=== PATIENT | female | born 1930 | race Caucasian/White ===

== ENCOUNTER 2018-12-04 12:27 | Inpatient (IN) | payer MEDICARE ==
[2018-12-04] MEDS ORDERED: Sodium Chloride 0.9% 1,000 ML IV SCH ×2 (12:30→14:30)
--- NOTE | 2018-12-04 13:08 | EDM.PDOC ---
ED HPI GENERAL MEDICAL PROBLEM - General Chief Complaint: Syncope Stated Complaint: VIA [facility] AM Time Seen by Provider: 12/04/18 12:58 Source of Information: Reports: Patient History Limitations: Reports: No Limitations - History of Present Illness INITIAL COMMENTS - FREE TEXT/NARRATIVE: pt was found lying on the floor naked. She stated that she tripped over the cat 2-3 hours ago and she was not able to stand up. She lives alone and is able to care for her self with the help of the family. Onset: Today, Sudden Duration: Hour(s): Location: Reports: Chest, Lower Extremity, Left Associated Symptoms: Reports: Syncope - Related Data Allergies Allergy/AdvReac Type Severity Reaction Status Date / Time No Known Allergies Allergy Verified 08/12/15 22:12 Home Meds: Home Meds Multivitamin [Daily Multiple Vitamin] 1 tab PO DAILY 08/12/15 [History] Lisinopril/Hydrochlorothiazide [Lisinopril-Hctz 20-25 mg Tab] 20.25 mg PO DAILY 08/13/15 [History] Aspirin [Halfprin] 1 tab PO DAILY 12/04/18 [History] Past Medical History Cardiovascular History: Reports: CAD, Hypertension, Pacemaker, Syncope, Other ( See Below) Other Cardiovascular History: heart valve problems, dyslipidemia Gastrointestinal History: Reports: GERD - Past Surgical History HEENT Surgical History: Reports: Other (See Below) Social & Family History - Family History Family Medical History: Noncontributory ED ROS GENERAL - Review of Systems Review Of Systems: See Below Constitutional: Reports: Weakness, Other (pt fell and she was not able to get up. ) HEENT: Reports: No Symptoms Respiratory: Reports: No Symptoms Cardiovascular: Reports: No Symptoms Endocrine: Reports: No Symptoms GI/Abdominal: Reports: No Symptoms : Reports: No Symptoms Musculoskeletal: Reports: Other (pain in the left hip and pelvis--mild. She has some pain in her left rib area. ) Skin: Reports: No Symptoms Neurological: Reports: Dizziness, Other (pt t fell and she was not able to get up. ) - Physical Exam Exam: See Below Text/Narrative:: pt arrived with a history of being found on the floor by her son. No one knows how long she was on the floor. She states she did not pass out. She tripped over the cat and then she could not get up. Exam Limited By: No Limitations General Appearance: Alert, Anxious, Moderate Distress, Other (pt is complaining of pain in the left anterior chest and in the left hip. pupils are equal and reactive. ) Ears: Normal TMs Nose: Normal Inspection Throat/Mouth: Normal Inspection Head Exam: Atraumatic Neck: Normal Inspection Respiratory/Chest: No Respiratory Distress Cardiovascular: Regular Rate, Rhythm GI/Abdominal: Soft, Non-Tender (Female) Exam: Deferred Rectal (Female) Exam: Deferred Neuro Exam (Abbreviated): Alert, Oriented, Normal Cognition Back Exam: Normal Inspection Extremities: Normal Inspection Psychiatric: Normal Affect, Anxious Course - Vital Signs Last Recorded V/S: Last Vital Signs Temp 35.7 C 12/06/18 07:00 Pulse 94 12/06/18 07:00 Resp 18 12/06/18 07:00 BP 118/84 12/06/18 07:00 Pulse Ox 98 12/06/18 07:00 - Orders/Labs/Meds Orders: Medication Orders Acetaminophen (Tylenol) 650 mg PO Q4H PRN PRN Reason: Pain/Fever Last Admin: 12/05/18 02:50 Dose: 650 mg Aspirin (Halfprin) 81 mg PO DAILY [facility] Last Admin: 12/05/18 11:49 Dose: 81 mg Hydrochlorothiazide (Hydrochlorothiazide) 25 mg PO DAILY [facility] Last Admin: 12/05/18 11:47 Dose: Sodium Chloride (Normal Saline) 1,000 mls @ 125 mls/hr IV ASDIRECTED [facility] Last Admin: 12/06/18 03:43 Dose: 125 mls/hr Infusion: 12/06/18 03:43 Dose: 125 mls/hr Admin: 12/05/18 19:46 Dose: 125 mls/hr Infusion: 12/05/18 19:46 Dose: 125 mls/hr Admin: 12/05/18 11:52 Dose: 125 mls/hr Infusion: 12/05/18 11:52 Dose: 125 mls/hr Admin: 12/05/18 04:16 Dose: 125 mls/hr Admin: 12/04/18 19:46 Dose: 125 mls/hr Ceftriaxone Sodium 1 gm/ (Sodium Chloride) 50 mls @ 100 mls/hr IV Q24H [facility] Last Admin: 12/05/18 17:30 Dose: 100 mls/hr Admin: 12/04/18 19:42 Dose: 100 mls/hr Lisinopril (Prinivil) 20 mg PO DAILY [facility] Last Admin: 12/05/18 11:48 Dose: Magnesium Hydroxide (Milk Of Magnesia) 30 ml PO Q12H PRN PRN Reason: Constipation Melatonin (Melatonin) 9 mg PO BEDTIME [facility] Last Admin: 12/05/18 21:32 Dose: 9 mg Admin: 12/04/18 21:03 Dose: 9 mg Ondansetron HCl (Zofran Odt) 4 mg PO Q6H PRN PRN Reason: Nausea able to take PO Ondansetron HCl (Zofran) 4 mg IV Q6H PRN PRN Reason: Nausea/Vomiting Polymyxin/Trimethoprim Sulfate (Polytrim Ophth Soln) 0 ml EYERT QID [facility] Last Admin: 12/06/18 05:00 Dose: 1 drop Admin: 12/05/18 21:32 Dose: 1 drop Admin: 12/05/18 17:30 Dose: 1 drop Admin: 12/05/18 11:46 Dose: 1 drop Admin: 12/05/18 06:24 Dose: Admin: 12/04/18 22:15 Dose: Admin: 12/04/18 17:53 Dose: Senna/Docusate Sodium (Senna Plus) 1 tab PO BID PRN PRN Reason: Constipation Tramadol HCl (Ultram) 50 mg PO Q6H PRN PRN Reason: Pain (moderate 4-6) Last Admin: 12/05/18 02:49 Dose: 50 mg Admin: 12/04/18 21:03 Dose: 50 mg Labs: Laboratory Tests 12/04/18 12/04/18 12/04/18 Range/Units 12:35 12:35 12:35 WBC 17.9 H (4.5-11.0) K/uL RBC 4.97 (3.30-5.50) M/uL Hgb 16.5 H D (12.0-15.0) g/dL Hct 48.1 H (36.0-48.0) % MCV 97 (80-98) fL MCH 33 H (27-31) pg MCHC 34 (32-36) % Plt Count 258 (150-400) K/uL Neut % (Auto) 91 H (36-66) % Lymph % (Auto) 5 L (24-44) % Glenn % (Auto) 4 (2-6) % Eos % (Auto) 0 L (2-4) % Baso % (Auto) 0 (0-1) % Sodium 129 L (140-148) mmol/L Potassium 4.0 (3.6-5.2) mmol/L Chloride 93 L (100-108) mmol/L Carbon Dioxide 23 (21-32) mmol/L Anion Gap 17.0 H (5.0-14.0) mmol/L BUN 8 (7-18) mg/dL Creatinine 0.8 (0.6-1.0) mg/dL Est Cr Clr Drug Dosing 42.90 mL/min Estimated GFR (MDRD) > 60 (>60) Glucose 117 H (74-106) mg/dL Calcium 9.4 D (8.5-10.1) mg/dL Total Bilirubin 1.3 H D (0.2-1.0) mg/dL AST 36 D (15-37) U/L ALT 22 (12-78) U/L Alkaline Phosphatase 79 (46-116) U/L Creatine Kinase 505 H (26-192) U/L Troponin I < 0.017 (0.000-0.056) ng/mL Total Protein 7.0 (6.4-8.2) g/dL Albumin 3.5 (3.4-5.0) g/dL Globulin 3.5 (2.3-3.5) g/dL Albumin/Globulin Ratio 1.0 L (1.2-2.2) Meds: Medications Generic Name Dose Route Start Last Admin Trade Name Otoniel PRN Reason Stop Dose Admin Acetaminophen 650 mg 12/04/18 15:19 12/05/18 02:50 Tylenol PO 650 mg Q4H PRN Administration Pain/Fever Aspirin 81 mg 12/05/18 09:00 12/05/18 11:49 Halfprin PO 81 mg DAILY [facility]IM[facility] Administration Hydrochlorothiazide 25 mg 12/05/18 09:00 12/05/18 11:47 Hydrochlorothiazide PO Not Given DAILY [facility] Sodium Chloride 1,000 mls @ 125 mls/hr 12/04/18 16:45 12/06/18 03:43 Normal Saline IV 125 mls/hr ASDIRECTED JIM[facility] Administration Ceftriaxone Sodium 1 gm/ 50 mls @ 100 mls/hr 12/04/18 18:00 12/05/18 17:30 Sodium Chloride IV 100 mls/hr Q24H [facility]IM[facility] Administration Lisinopril 20 mg 12/05/18 09:00 12/05/18 11:48 Prinivil PO Not Given DAILY JIM[facility] Magnesium Hydroxide 30 ml 12/04/18 16:45 Milk Of Magnesia PO Q12H PRN Constipation Melatonin 9 mg 12/04/18 21:00 12/05/18 21:32 Melatonin PO 9 mg BEDTIME [facility] Administration Ondansetron HCl 4 mg 12/04/18 16:45 Zofran Odt PO Q6H PRN Nausea able to take PO Ondansetron HCl 4 mg 12/04/18 16:45 Zofran IV Q6H PRN Nausea/Vomiting Polymyxin/Trimethoprim Sulfate 0 ml 12/04/18 16:45 12/06/18 05:00 Polytrim Ophth Soln EYERT 1 drop QID [facility] Administration Senna/Docusate Sodium 1 tab 12/04/18 16:45 Senna Plus PO BID PRN Constipation Tramadol HCl 50 mg 12/04/18 16:45 12/05/18 02:49 Ultram PO 50 mg Q6H PRN Administration Pain (moderate 4-6) Discontinued Medications Generic Name Dose Route Start Last Admin Trade Name Freq PRN Reason Stop Dose Admin Ceftriaxone Sodium Confirm 12/04/18 19:37 12/04/18 19:55 Rocephin Administered 12/04/18 19:38 Not Given Dose 1 gm .ROUTE .STK-MED ONE Sodium Chloride 1,000 mls @ 999 mls/hr 12/04/18 12:30 12/04/18 12:49 Normal Saline IV 999 mls/hr ASDIRECTED [facility]IM[facility] Administration Sodium Chloride 1,000 mls @ 250 mls/hr 12/04/18 14:30 12/04/18 14:34 Normal Saline IV 250 mls/hr ASDIRECTED [facility] Administration - Re-Assessments/Exams Free Text/Narrative Re-Assessment/Exam: 12/06/18 07:27 pt had mild elevation in her cpk. Her na is low and her wbc is elevated. A cat scan of the head was normal. 12/06/18 07:28 Departure - Departure Time of Disposition: 07:00 Disposition: Admitted As Inpatient 65 Condition: Fair Clinical Impression: Elevated CPK, Contusion of left hip, Contusion of left chest wall - Discharge Information
[2018-12-04] MEDS ORDERED: Acetaminophen 325 MG Tab PO PRN (15:19)
--- NOTE | 2018-12-04 15:32 | PCM.HP ---
H&P History of Present Illness - General Date of Service: 12/04/18 Admit Problem/Dx: Admission Diagnosis/Problem Admission Diagnosis/Problem Rhabdomyolysis Source of Information: Patient, Family, Provider History Limitations: Reports: No Limitations - History of Present Illness Initial Comments - Free Text/Narative: CC: my hip hurts HPI: October presents to the emergency room today with weakness, left side and left hip pain. History is somewhat limited and her history is not consistent because of some apparent memory difficulties. The patient reports that she tripped over the This morning while getting out of the shower and fell landing on her left side. She says she was on the floor for half an hour but family thinks it may have been several hours. The patient is currently complaining of moderate achy pain in the left lateral portion of the ribs and her left hip. Moving makes the pain worse. Laying still makes the pain better. She hasn't taken anything to help the pain. She reports that she has felt well and there has been nothing out of the ordinary in recent days. She doesn't think she's had any fevers. She has not noticed a change in her bowel or bladder habits. She does not feel short of breath and has not been coughing. She does admit that she has not been eating well and has not been drinking very much water. Workup in the emergency room included laboratory testing, urinalysis and a variety of imaging. Laboratory studies revealed leukocytosis and elevated CK consistent with rhabdomyolysis.. Urinalysis suggestive of infection. Imaging studies did not reveal evidence for rib fracture, hip fracture, intracranial abnormality or lumbar spine difficulty. She is weak and requires the assisted 2 people to get up. She'll be admitted for management of rhabdomyolysis and a urinary tract infection complicated by generalized weakness. - Related Data Allergies/Adverse Reactions: Allergies Allergy/AdvReac Type Severity Reaction Status Date / Time No Known Allergies Allergy Verified 08/12/15 22:12 Home Medications: Home Meds Multivitamin [Daily Multiple Vitamin] 1 tab PO DAILY 08/12/15 [History] Lisinopril/Hydrochlorothiazide [Lisinopril-Hctz 20-25 mg Tab] 20.25 mg PO DAILY 08/13/15 [History] Aspirin [Halfprin] 1 tab PO DAILY 12/04/18 [History] Past Medical History HEENT History: Reports: Hard of Hearing Cardiovascular History: Reports: CAD, Hypertension, Pacemaker, Syncope, Other ( See Below) Other Cardiovascular History: heart valve problems, dyslipidemia Gastrointestinal History: Reports: GERD Genitourinary History: Reports: Urinary Incontinence [employer] History: Reports: Immunologic History: Reports: Other (See Below) Other Immunologic History: RA - Past Surgical History HEENT Surgical History: Reports: Other (See Below) Social & Family History - Family History Family Medical History: Noncontributory - Tobacco Use Smoking Status *Q: Never Smoker - Caffeine Use Caffeine Use: Reports: Coffee - Alcohol Use Days Per Week of Alcohol Use: 7 Number of Drinks Per Day: 3 Total Drinks Per Week: 21 - Recreational Drug Use Recreational Drug Use: No H&P Review of Systems - Review of Systems: Review Of Systems: See Below Free Text/Narrative: A complete 12 point review of systems was obtained. Pertinent positives and negatives are noted in the history of present illness. All other systems were reviewed and were negative except as noted. Exam - Exam Exam: See Below - Vital Signs Vital Signs: Last Vital Signs Temp 35.7 C 12/04/18 13:01 Pulse 95 12/04/18 13:01 Resp 20 12/04/18 13:01 BP 133/67 12/04/18 13:01 Pulse Ox 95 12/04/18 13:01 Weight: 62.596 kg - Exam Quality Assessment: No: Supplemental Oxygen General: Alert, Cooperative. No: Mild Distress HEENT: No: Conjunctiva Clear (right conjunciva injected with purulent material in the medial eye ), Mucosa Moist & [place] (dry), Scleral Icterus Neck: Supple, Trachea Midline. No: Lymphadenopathy Lungs: Clear to Auscultation, Normal Respiratory Effort Cardiovascular: Regular Rate, Regular Rhythm, Systolic Murmur (VENECIA throughout, best RUSB) GI/Abdominal Exam: Normal Bowel Sounds, Soft, No Distention, No Mass, Tender ( mild LUQ) Back Exam: Normal Inspection, Decreased Range of Motion Extremities: No Pedal Edema. No: Increased Warmth Peripheral Pulses: 2+: Dorsalis Pedis (L), Dorsalis Pedis (R) Skin: Warm, Dry Neuro Extensive - Mental Status: Alert, Nl Response to Commands Neuro Extensive - Motor, Sensory, Reflexes: No: Dysarthria, Abnormal Motor, Tremor Psychiatric: Alert, Normal Affect - Patient Data Lab Results Last 24 hrs: Laboratory Results - last 24 hr 08/04/19 08/04/19 08/04/19 Range/Units 12:35 12:35 12:35 WBC 17.9 H (4.5-11.0) K/uL RBC 4.97 (3.30-5.50) M/uL Hgb 16.5 H D (12.0-15.0) g/dL Hct 48.1 H (36.0-48.0) % MCV 97 (80-98) fL MCH 33 H (27-31) pg MCHC 34 (32-36) % Plt Count 258 (150-400) K/uL Neut % (Auto) 91 H (36-66) % Lymph % (Auto) 5 L (24-44) % [place] % (Auto) 4 (2-6) % Eos % (Auto) 0 L (2-4) % Baso % (Auto) 0 (0-1) % Sodium 129 L (140-148) mmol/L Potassium 4.0 (3.6-5.2) mmol/L Chloride 93 L (100-108) mmol/L Carbon Dioxide 23 (21-32) mmol/L Anion Gap 17.0 H (5.0-14.0) mmol/L BUN 8 (7-18) mg/dL Creatinine 0.8 (0.6-1.0) mg/dL Est Cr Clr Drug Dosing 42.90 mL/min Estimated GFR (MDRD) > 60 (>60) Glucose 117 H (74-106) mg/dL Calcium 9.4 D (8.5-10.1) mg/dL Total Bilirubin 1.3 H D (0.2-1.0) mg/dL AST 36 D (15-37) U/L ALT 22 (12-78) U/L Alkaline Phosphatase 79 (46-116) U/L Creatine Kinase 505 H (26-192) U/L Troponin I < 0.017 (0.000-0.056) ng/mL Total Protein 7.0 (6.4-8.2) g/dL Albumin 3.5 (3.4-5.0) g/dL Globulin 3.5 (2.3-3.5) g/dL Albumin/Globulin Ratio 1.0 L (1.2-2.2) Result Diagrams: 12/04/18 12:35 12/04/18 12:35 Imaging Impressions Last 24 hrs: Hip XR - images personally reviewed - no evidence for fracture or dislocation. She does have a fair amount of arthritis. CXR - lungs are clear with no mass, infiltrate or effusion. Head CT - mild volume loss with chronic small vessel ischemic disease but no hemorrhage or mass Lumbar spine CT - no evidence for fracture or dislocation. Significant degenerative changes throughout the lumbar spine. Partially visualized cystic lesion in the right adnexa *Q Meaningful Use (ADM) - VTE Risk Assess *Q Each Risk Factor Represents 1 Point: None Total Score 1 Point Risk Factors: 0 Each Risk Factor Represents 2 Points: None Total Score 2 Point Risk Factors: 0 Each Risk Factor Represents 3 Points: Age 75 Years or Greater Total Score 3 Point Risk Factors: 3 Each Risk Factor Represents 5 Points: None Total Score 5 Point Risk Factors: 0 Venous Thromboembolism Risk Factor Score *Q: 3 - Problem List (1) Acute cystitis without hematuria SNOMED Code(s): 22758805 ICD Code: N30.00 - ACUTE CYSTITIS WITHOUT HEMATURIA Status: Acute Current Visit: Yes (2) Dehydration SNOMED Code(s): 68101952 ICD Code: E86.0 - DEHYDRATION Status: Acute Current Visit: Yes (3) Traumatic rhabdomyolysis SNOMED Code(s): 806115048 ICD Code: T79.6XXA - TRAUMATIC ISCHEMIA OF MUSCLE, INITIAL ENCOUNTER Status : Acute Current Visit: Yes Qualifiers: Encounter type: initial encounter Qualified Code(s): T79.6XXA - Traumatic ischemia of muscle, initial encounter (4) Fall as cause of accidental injury at home as place of occurrence SNOMED Code(s): 19251674 ICD Code: W19.XXXA - UNSPECIFIED FALL, INITIAL ENCOUNTER; Y92.009 - UNSP PLACE IN UNSP NON-INSTITUT (PRIVATE) RESIDENCE PLACE Status: Acute Current Visit: Yes Qualifiers: Encounter type: initial encounter Qualified Code(s): W19.XXXA - Unspecified fall, initial encounter; Y92.009 - Unspecified place in unspecified non-institutional (private) residence as the place of occurrence of the external cause Problem List Initiated/Reviewed/Updated: Yes Orders Last 24hrs: Active Orders 24 hr Category Date Time Status Patient Status Manage Transfer [TRANSFER] Routine ADT 12/04/18 15:21 Ordered Chest 1V Frontal [CR] Stat Exams 12/04/18 12:55 Taken Head wo Cont [CT] Stat Exams 12/04/18 14:38 Ordered Hip Min 2V or 3V w Pelvis Lt [CR] Stat Exams 12/04/18 12:56 Taken Lumbar Spine Min 4V [CR] Stat Exams 12/04/18 14:39 Stop Req Lumbar Spine wo Cont [CT] Stat Exams 12/04/18 15:16 Ordered UA W/MICROSCOPIC [URIN] Urgent Lab 12/04/18 12:29 Ordered Acetaminophen [Tylenol] Med 12/04/18 15:19 Active 650 mg PO Q4H PRN Sodium Chloride 0.9% [Normal Saline] 1,000 ml Med 12/04/18 12:30 Active IV ASDIRECTED Sodium Chloride 0.9% [Normal Saline] 1,000 ml Med 12/04/18 14:30 Active IV ASDIRECTED Resuscitation Status Routine Resus Stat 12/04/18 15:22 Ordered Medication Orders Acetaminophen (Tylenol) 650 mg PO Q4H PRN PRN Reason: Pain/Fever Sodium Chloride (Normal Saline) 1,000 mls @ 999 mls/hr IV ASDIRECTED [facility] Last Admin: 12/04/18 12:49 Dose: 999 mls/hr Sodium Chloride (Normal Saline) 1,000 mls @ 250 mls/hr IV ASDIRECTED [facility] Last Admin: 12/04/18 14:34 Dose: 250 mls/hr Assessment/Plan Comment:: ASSESSMENT AND PLAN - Rhabdomyolysis, traumatic - patient had a fall and spent an unknown quantity of time on the floor. CK level elevated at more than 500 and I expect that this will rise before it starts to go down. Pain is mostly localized on the left side. No evidence for muscle necrosis at this time. She is moderately dehydrated. -IV fluids -Pain control -Recheck CK level in the morning Acute cystitis without hematuria - this would explain her weakness and memory impairment compared to baseline. She is not febrile and did not have symptoms. No evidence for sepsis but she does have leukocytosis. -Ceftriaxone -IV fluids -Culture the urine Essential hypertension - blood pressure control acceptable at this time. -Continue home medication Right eye bacterial conjunctivitis - conjunctiva appear inflamed and there is a mild amount of purulent drainage in the medial portion of the eye. -Polytrim eyedrops Cystic lesion of the right adnexa - No symptoms. -Pelvic ultrasound in the morning Maintenance issues - - DVT prophylaxis - mechanical - GI prophylaxis - PPI - Nutrition - regular - Mckeon catheter - not indicated CODE STATUS - DNR/DNI Admission justification - This patient will be admitted for inpatient services and is medically appropriate meeting medical necessity for inpatient admission as outlined in my documentation. I reasonably expect the patient will require inpatient services that span a period time over 2 midnights. I reasonably expect this patient to be discharged or transferred within 96 hours after admission to the [facility]. Disposition - I would anticipate discharge home after the hospital stay Primary care physician - Desean Goodrich M.D.
--- NOTE | 2018-12-04 15:35 | CRLCR ---
Indication: Pain in left side of chest. Technique: AP view of the chest was obtained. Comparison: None Findings: A left-sided pacemaker is identified. The heart is normal in size. Left basilar atelectasis identified. No pleural effusion or pneumothorax is identified. Impression: Left basilar atelectasis. Dictated by Shaneka Chapa MD @ Dec 04 2018 3:33PM Signed by Dr. Shaneka Chapa @ Dec 04 2018 3:33PM
--- NOTE | 2018-12-04 15:48 | CRLCR ---
Indication: Pain in left hip. Technique: AP view the pelvis and two views of the left hip were obtained. Comparison: None Findings: Degenerative changes of the lower lumbar spine and both hips are identified. Both femoral heads are seated within the acetabula. No acute fracture or subluxation is identified. Impression: Degenerative change. Dictated by Shaneka Chapa MD @ Dec 04 2018 3:46PM Signed by Dr. Shaneka Chapa @ Dec 04 2018 3:46PM
--- NOTE | 2018-12-04 16:19 | CRLCT ---
INDICATION: Falling with questionable LOC TECHNIQUE: Head CT without contrast. COMPARISON: None FINDINGS: CSF spaces: Within normal limits for age. Brain parenchyma: There are nonspecific low attenuation white matter changes consistent with chronic microvascular disease. No sign of mass, hemorrhage, or midline shift. Skull base and calvarium: The visualized paranasal sinuses and mastoid air cells demonstrate no acute or significant findings. The visualized orbits are grossly unremarkable. No skull fractures. There is intracranial atherosclerosis. IMPRESSION: 1. No acute findings. 2. Nonspecific white matter disease, typical of chronic microvascular disease. Please note that all CT scans at this facility use dose modulation, iterative reconstruction, and/or weight-based dosing when appropriate to reduce radiation dose to as low as reasonably achievable. Dictated by Amisha Vega MD @ Dec 04 2018 4:17PM Signed by Dr. Amisha Vega @ Dec 04 2018 4:17PM
--- NOTE | 2018-12-04 16:28 | CRLCT ---
INDICATION: Fall, low back pain TECHNIQUE: CT lumbar spine without contrast. COMPARISON: None FINDINGS: Vertebral alignment: Mild dextroscoliosis of the lumbar spine. Vertebrae: Osteopenia. Chronic T12 and L1 fractures. No acute fracture identified. No suspicious bony lesions. Discs and facet joints: Severe multilevel degenerative disc and facet changes throughout the lumbar spine. Extraspinal findings: Significant atherosclerotic disease. Pacemaker wire in the right ventricle. Coronary artery calcifications. 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 Small hiatal hernia. Small fat containing umbilical hernia. Colonic diverticulosis. Partially visualized 3.1 cm cystic lesion in the right adnexa. IMPRESSION: No acute lumbar spine fracture or subluxation. Chronic T12 and L1 fractures. Severe multilevel degenerative disc and facet changes throughout the lumbar spine. Partially visualized cystic lesion in the right adnexa. Consider nonemergent pelvic ultrasound for further characterization. Ectasia of the ascending aorta. Coronary artery disease. Colonic diverticulosis. Please note that all CT scans at this facility use dose modulation, iterative reconstruction, and/or weight-based dosing when appropriate to reduce radiation dose to as low as reasonably achievable. Dictated by Amisha Vega MD @ Dec 04 2018 4:18PM Signed by Dr. Amisha Vega @ Dec 04 2018 4:26PM
[2018-12-04] MEDS ORDERED: Ondansetron 4 MG Tab.DIS PO PRN (16:45)
[2018-12-04] MEDS ORDERED: Magnesium Hydroxide 400 MG/5 ML Susp 30 ML Cup PO PRN (16:45)
[2018-12-04] MEDS ORDERED: Ondansetron 4 MG/2 ML SDV IV PRN (16:45)
[2018-12-04] MEDS: Polymyxin B/Trimethoprim 10 ML Bottle EYERT SCH ×2 (17:53→22:15)
[2018-12-04] MEDS ORDERED: cefTRIAXone 1 GM Vial ONE (19:37)
[2018-12-04] MEDS: cefTRIAXone 1 GM in Sodium Chloride 0.9% 50 ML IV SCH (19:42)
[2018-12-04] MEDS: Sodium Chloride 0.9% 1,000 ML IV SCH (19:46)
[2018-12-04] MEDS: traMADol 50 MG Tab PO PRN (21:03)
[2018-12-04] MEDS: Melatonin 3 MG Tab PO SCH (21:03)
[2018-12-05] MEDS: traMADol 50 MG Tab PO PRN (02:49)
[2018-12-05] MEDS: Sodium Chloride 0.9% 1,000 ML IV SCH ×3 (04:16→19:46)
[2018-12-05] MEDS: Polymyxin B/Trimethoprim 10 ML Bottle EYERT SCH ×4 (06:24→21:32)
[2018-12-05] MEDS: Hydrochlorothiazide 25 MG Tab PO SCH (11:47)
[2018-12-05] MEDS: Lisinopril 20 MG Tab PO SCH (11:48)
[2018-12-05] MEDS: Aspirin 81 MG Tab.EC PO SCH (11:49)
--- NOTE | 2018-12-05 12:35 | PCM.PN ---
- General Info Date of Service: 12/05/18 Admission Dx/Problem (Free Text): Admission Diagnosis/Problem Admission Diagnosis/Problem Rhabdomyolysis Subjective Update: Patient states he is doing well and asked to go home, the family is concerned about difficulty with swallowing. She states she is tolerating diet denies any chest pain shortness of breath nausea or vomiting Functional Status: Reports: Pain Controlled - Review of Systems General: Reports: No Symptoms HEENT: Reports: Dysphasia Pulmonary: Reports: No Symptoms Cardiovascular: Reports: No Symptoms Gastrointestinal: Reports: No Symptoms Genitourinary: Reports: No Symptoms Musculoskeletal: Reports: No Symptoms - Patient Data Vitals - Most Recent: Last Vital Signs Temp 96.1 F 12/05/18 12:00 Pulse 64 12/05/18 12:00 Resp 16 12/05/18 12:00 BP 98/58 L 12/05/18 12:00 Pulse Ox 98 12/05/18 12:00 Weight - Most Recent: 62.596 kg I&O - Last 24 Hours: Intake & Output 12/04/18 12/05/18 12/05/18 22:59 06:59 14:59 Intake Total 500 1475 Output Total 100 225 Balance 400 1250 Lab Results Last 24 Hours: Laboratory Results - last 24 hr 12/04/18 12/04/18 12/04/18 Range/Units 12:35 12:35 12:35 WBC 17.9 H (4.5-11.0) K/uL RBC 4.97 (3.30-5.50) M/uL Hgb 16.5 H D (12.0-15.0) g/dL Hct 48.1 H (36.0-48.0) % MCV 97 (80-98) fL MCH 33 H (27-31) pg MCHC 34 (32-36) % Plt Count 258 (150-400) K/uL Neut % (Auto) 91 H (36-66) % Lymph % (Auto) 5 L (24-44) % Kent % (Auto) 4 (2-6) % Eos % (Auto) 0 L (2-4) % Baso % (Auto) 0 (0-1) % Sodium 129 L (140-148) mmol/L Potassium 4.0 (3.6-5.2) mmol/L Chloride 93 L (100-108) mmol/L Carbon Dioxide 23 (21-32) mmol/L Anion Gap 17.0 H (5.0-14.0) mmol/L BUN 8 (7-18) mg/dL Creatinine 0.8 (0.6-1.0) mg/dL Est Cr Clr Drug Dosing 42.90 mL/min Estimated GFR (MDRD) > 60 (>60) Glucose 117 H (74-106) mg/dL Calcium 9.4 D (8.5-10.1) mg/dL Total Bilirubin 1.3 H D (0.2-1.0) mg/dL AST 36 D (15-37) U/L ALT 22 (12-78) U/L Alkaline Phosphatase 79 (46-116) U/L Creatine Kinase 505 H (26-192) U/L Troponin I < 0.017 (0.000-0.056) ng/mL Total Protein 7.0 (6.4-8.2) g/dL Albumin 3.5 (3.4-5.0) g/dL Globulin 3.5 (2.3-3.5) g/dL Albumin/Globulin Ratio 1.0 L (1.2-2.2) Urine Color Urine Appearance Urine pH (4.5-8.0) Ur Specific Anthony (1.008-1.030) Urine Protein (NEGATIVE) mg/dL Urine Glucose (UA) (NEGATIVE) mg/dL Urine Ketones (NEGATIVE) mg/dL Urine Occult Blood (NEGATIVE) Urine Nitrite (NEGATIVE) Urine Bilirubin (NEGATIVE) Urine Urobilinogen (NORMAL) mg/dL Ur Leukocyte Esterase (NEGATIVE) Urine RBC (0-5) Urine WBC (0-5) Ur Epithelial Cells Amorphous Sediment Urine Bacteria Urine Mucus 12/04/18 12/05/18 12/05/18 Range/Units 16:45 04:30 04:30 WBC 9.7 (4.5-11.0) K/uL RBC 3.80 (3.30-5.50) M/uL Hgb 12.6 D (12.0-15.0) g/dL Hct 37.5 (36.0-48.0) % MCV 99 H (80-98) fL MCH 33 H (27-31) pg MCHC 34 (32-36) % Plt Count 208 (150-400) K/uL Neut % (Auto) (36-66) % Lymph % (Auto) (24-44) % Kent % (Auto) (2-6) % Eos % (Auto) (2-4) % Baso % (Auto) (0-1) % Sodium 131 L (140-148) mmol/L Potassium 4.0 (3.6-5.2) mmol/L Chloride 99 L (100-108) mmol/L Carbon Dioxide 23 (21-32) mmol/L Anion Gap 13.0 (5.0-14.0) mmol/L BUN 8 (7-18) mg/dL Creatinine 0.7 (0.6-1.0) mg/dL Est Cr Clr Drug Dosing 45.07 mL/min Estimated GFR (MDRD) > 60 (>60) Glucose 95 (74-106) mg/dL Calcium 7.9 L D (8.5-10.1) mg/dL Total Bilirubin (0.2-1.0) mg/dL AST (15-37) U/L ALT (12-78) U/L Alkaline Phosphatase (46-116) U/L Creatine Kinase 266 H (26-192) U/L Troponin I (0.000-0.056) ng/mL Total Protein (6.4-8.2) g/dL Albumin (3.4-5.0) g/dL Globulin (2.3-3.5) g/dL Albumin/Globulin Ratio (1.2-2.2) Urine Color Yellow Urine Appearance Cloudy Urine pH 5.0 (4.5-8.0) Ur Specific Anthony 1.020 (1.008-1.030) Urine Protein Negative (NEGATIVE) mg/dL Urine Glucose (UA) Normal (NEGATIVE) mg/dL Urine Ketones 50 H (NEGATIVE) mg/dL Urine Occult Blood Trace (NEGATIVE) Urine Nitrite Positive H (NEGATIVE) Urine Bilirubin Negative (NEGATIVE) Urine Urobilinogen Normal (NORMAL) mg/dL Ur Leukocyte Esterase Large (NEGATIVE) Urine RBC 0-5 (0-5) Urine WBC 75-100 H (0-5) Ur Epithelial Cells Few Amorphous Sediment Not seen Urine Bacteria Many Urine Mucus Not seen Med Orders - Current: Current Medications Acetaminophen (Tylenol) 650 mg PO Q4H PRN PRN Reason: Pain/Fever Last Admin: 12/05/18 02:50 Dose: 650 mg Aspirin (Halfprin) 81 mg PO DAILY [facility] Last Admin: 12/05/18 11:49 Dose: 81 mg Hydrochlorothiazide (Hydrochlorothiazide) 25 mg PO DAILY [facility] Last Admin: 12/05/18 11:47 Dose: Not Given Sodium Chloride (Normal Saline) 1,000 mls @ 125 mls/hr IV ASDIRECTED [facility] Last Admin: 12/05/18 11:52 Dose: 125 mls/hr Ceftriaxone Sodium 1 gm/ (Sodium Chloride) 50 mls @ 100 mls/hr IV Q24H [facility] Last Admin: 12/04/18 19:42 Dose: 100 mls/hr Lisinopril (Prinivil) 20 mg PO DAILY [facility] Last Admin: 12/05/18 11:48 Dose: Not Given Magnesium Hydroxide (Milk Of Magnesia) 30 ml PO Q12H PRN PRN Reason: Constipation Melatonin (Melatonin) 9 mg PO BEDTIME [facility] Last Admin: 12/04/18 21:03 Dose: 9 mg Ondansetron HCl (Zofran Odt) 4 mg PO Q6H PRN PRN Reason: Nausea able to take PO Ondansetron HCl (Zofran) 4 mg IV Q6H PRN PRN Reason: Nausea/Vomiting Polymyxin/Trimethoprim Sulfate (Polytrim Ophth Soln) 0 ml EYERT QID [facility] Last Admin: 12/05/18 11:46 Dose: 1 drop Senna/Docusate Sodium (Senna Plus) 1 tab PO BID PRN PRN Reason: Constipation Tramadol HCl (Ultram) 50 mg PO Q6H PRN PRN Reason: Pain (moderate 4-6) Last Admin: 12/05/18 02:49 Dose: 50 mg Discontinued Medications Ceftriaxone Sodium (Rocephin) Confirm Administered Dose 1 gm .ROUTE .STK-MED ONE Stop: 12/04/18 19:38 Last Admin: 12/04/18 19:55 Dose: Not Given Sodium Chloride (Normal Saline) 1,000 mls @ 999 mls/hr IV ASDIRECTED [facility] Last Admin: 12/04/18 12:49 Dose: 999 mls/hr Sodium Chloride (Normal Saline) 1,000 mls @ 250 mls/hr IV ASDIRECTED [facility] Last Admin: 12/04/18 14:34 Dose: 250 mls/hr - Exam General: Alert, Oriented HEENT: Pupils Equal Neck: Supple Lungs: Clear to Auscultation, Normal Respiratory Effort Cardiovascular: Regular Rate, Regular Rhythm, Murmurs (2/6 systolic ejection murmur best appreciated left sternal border) GI/Abdominal Exam: Soft, Non-Tender Extremities: No Pedal Edema - Problem List & Annotations (1) Acute cystitis without hematuria SNOMED Code(s): 37819819 Code(s): N30.00 - ACUTE CYSTITIS WITHOUT HEMATURIA Status: Acute Current Visit: Yes (2) Traumatic rhabdomyolysis SNOMED Code(s): 665997724 Code(s): T79.6XXA - TRAUMATIC ISCHEMIA OF MUSCLE, INITIAL ENCOUNTER Status : Acute Current Visit: Yes Qualifiers: Encounter type: initial encounter Qualified Code(s): T79.6XXA - Traumatic ischemia of muscle, initial encounter - Problem List Review Problem List Initiated/Reviewed/Updated: Yes - My Orders Last 24 Hours: My Active Orders 12/05/18 12:30 Nursing Bedside Swallow Screen [RC] ASDIRECTED 12/06/18 05:11 BASIC METABOLIC PANEL,BMP [CHEM] AM CREATINE KINASE,CK [CHEM] AM - Plan Plan:: ASSESSMENT AND PLAN - Rhabdomyolysis, traumatic - patient had a fall and spent an unknown quantity of time on the floor. CK level elevated at more than 500 and I expect that this will rise before it starts to go down. Pain is mostly localized on the left side. No evidence for muscle necrosis at this time. She is moderately dehydrated. CK level has started to fall -IV fluids -Pain control -Recheck CK level in the morning Acute cystitis without hematuria - this would explain her weakness and memory impairment compared to baseline. She is not febrile and did not have symptoms. No evidence for sepsis but she does have leukocytosis. Denies any urinary symptoms at this time -Ceftriaxone -IV fluids -Culture the urine pending Essential hypertension - blood pressure control acceptable at this time. -Continue home medication Right eye bacterial conjunctivitis - conjunctiva appear inflamed and there is a mild amount of purulent drainage in the medial portion of the eye. -Polytrim eyedrops Cystic lesion of the right adnexa - No symptoms. -Pelvic ultrasound in the this afternoon Dysphagia - this is not a new problem has been going on for several months family is asked for further evaluation, patient has no particular complaints other than states food gets caught every once in a while. -Bedside nursing swallow study ordered, if needed order official swallow study from speech therapy Maintenance issues - - DVT prophylaxis - mechanical - GI prophylaxis - PPI - Nutrition - regular - Mckeon catheter - not indicated CODE STATUS - DNR/DNI Disposition - I would anticipate discharge home after the hospital stay Primary care physician - Desean Cuencar Gail
[2018-12-05] MEDS: cefTRIAXone 1 GM in Sodium Chloride 0.9% 50 ML IV SCH (17:30)
[2018-12-05] MEDS: Melatonin 3 MG Tab PO SCH (21:32)
[2018-12-06] MEDS: Sodium Chloride 0.9% 1,000 ML IV SCH (03:43)
[2018-12-06] MEDS: Polymyxin B/Trimethoprim 10 ML Bottle EYERT SCH ×3 (05:00→09:12)
[2018-12-06] MEDS: Lisinopril 20 MG Tab PO SCH (08:37)
[2018-12-06] MEDS: Aspirin 81 MG Tab.EC PO SCH (08:37)
[2018-12-06] MEDS: Hydrochlorothiazide 25 MG Tab PO SCH (08:37)
--- NOTE | 2018-12-06 10:01 | CRLUS ---
INDICATION: Follow-up CT. Right adnexal cystic mass. TECHNIQUE: Ultrasound pelvis transabdominal and transvaginal. Real-time sonographic images with spectral and color Doppler imaging of the ovaries were obtained. COMPARISON: 12/04/[address] FINDINGS: Uterus: 5.3 x 3.6 x 3.0 cm. Uterine calcifications, possibly small uterine fibroids. Endometrium: Endometrial thickness measures 4 mm. Mild endometrial fluid. Right ovary measures 3.3 x 3.3 x 2.5 cm and left ovary was not visualized. Circumscribed anechoic right renal cyst measuring 3.1 x 2.6 x 2.5 cm. No solid nodular components or vascularity. Normal arterial and venous blood flow is demonstrated the right ovary. Cul-de-sac: Mild free fluid. IMPRESSION: 1. Right ovarian cyst measuring up to 3.1 cm. No solid nodular component or vascularity identified. Recommend follow-up in 1 year with pelvic ultrasound. 2. Mild free pelvic fluid, and mild endometrial fluid. 3. Possible small calcified uterine fibroids. Dictated by Onofre Peña MD @ Dec 06 2018 9:51AM Signed by Dr. Onofre Peña @ Dec 06 2018 10:00AM
[2018-12-06 10:59] VITALS: BP 110/76; PULSE 84
--- NOTE | 2018-12-06 11:56 | PCM.DCSUM1 ---
Discharge Summary - Hospital Course Free Text/Narrative:: 88-year-old female admitted to the emergency department for a fall at home was lying on the ground for unknown period of time. Diagnosis of traumatic rhabdomyolysis with urinary tract infection suspicious for controlling to the fall. Admitted the hospital for fluid management and IV antibiotics of Rocephin. Did well throughout her hospital stay creatinine kinase improved to normal range at the time of discharge has no urinary symptomatology. Swallow evaluation done at the bedside by speech therapy revealed no action at this time. Pelvic ultrasound reveals 3.1 cm right ovarian cyst recommend follow-up in 1 year - Discharge Data Discharge Date: 12/06/18 Discharge Disposition: Home, Self-Care 01 Condition: Good - Discharge Diagnosis/Problem(s) (1) Acute cystitis without hematuria SNOMED Code(s): 25510828 ICD Code: N30.00 - ACUTE CYSTITIS WITHOUT HEMATURIA Status: Acute Current Visit: Yes (2) Traumatic rhabdomyolysis SNOMED Code(s): 153350966 ICD Code: T79.6XXA - TRAUMATIC ISCHEMIA OF MUSCLE, INITIAL ENCOUNTER Status : Acute Current Visit: Yes Qualifiers: Encounter type: initial encounter Qualified Code(s): T79.6XXA - Traumatic ischemia of muscle, initial encounter - Patient Summary/Data Consults: Consultations 12/05/18 07:00 PT Evaluation and Treatment [CONS] Routine Please Evaluate and Treat. PT Reason for Consult: Strengthening This query below is only for informational purposes and is not editable. - Patient Instructions Diet: Regular Diet as Tolerated - Discharge Plan Prescriptions/Med Rec: Sulfamethoxazole/Trimethoprim [Bactrim Ds Tablet] 1 each PO BID #6 tablet Home Medications: Home Meds Multivitamin [Daily Multiple Vitamin] 1 tab PO DAILY 08/12/15 [History] Lisinopril/Hydrochlorothiazide [Lisinopril-Hctz 20-25 mg Tab] 20.25 mg PO DAILY 08/13/15 [History] Aspirin [Halfprin] 1 tab PO DAILY 12/04/18 [History] Sulfamethoxazole/Trimethoprim [Bactrim Ds Tablet] 1 each PO BID #6 tablet [Rx] Oxygen Therapy Mode: Room Air Forms: ED Department Discharge Referrals: PCP,None [Primary Care Provider] - - Discharge Summary/Plan Comment DC Time >30 min.: No Discharge Summary/Plan Comment: ASSESSMENT AND PLAN Traumatic rhabdomyolysis, CK has improved to normal values with gentle fluid resuscitation Urinary tract infection with hematuria, initial treatment with Rocephin, discharged home medications with Bactrim DS one tab by mouth twice a day 3 days medications faxed to [facility] pharmacy Cystic mass on initial evaluation in ED, follow-up ultrasound reveals 3.1 cm right ovarian cyst follow-up ultrasound in 1 year DISPOSITION - discharge to home with family members she has declined any type of home service at this time PRIMARY CARE PROVIDER - primary care at [facility] follow-up 7-10 days Cedric Officer - General Info Date of Service: 12/06/18 Admission Dx/Problem (Free Text: Admission Diagnosis/Problem Admission Diagnosis/Problem Rhabdomyolysis Subjective Update: States she is doing well and asked to go home tolerating diet no nausea vomiting shortness of breath or chest pain no or GI symptomology Functional Status: Reports: Pain Controlled - Review of Systems General: Reports: No Symptoms Pulmonary: Reports: No Symptoms Cardiovascular: Reports: No Symptoms Gastrointestinal: Reports: No Symptoms - Patient Data Vitals - Most Recent: Last Vital Signs Temp 95.6 F 12/06/18 10:24 Pulse 84 12/06/18 10:24 Resp 18 12/06/18 10:24 BP 110/76 12/06/18 10:24 Pulse Ox 95 12/06/18 10:24 Weight - Most Recent: 62.596 kg I&O - Last 24 hours: Intake & Output 12/05/18 12/06/18 12/06/18 22:59 06:59 14:59 Intake Total 1540 2645 505 Output Total 413 357 8861 Balance 1040 1945 -745 Lab Results - Last 24 hrs: Laboratory Results - last 24 hr 12/06/18 Range/Units 04:45 Sodium 131 L (140-148) mmol/L Potassium 3.4 L (3.6-5.2) mmol/L Chloride 100 (100-108) mmol/L Carbon Dioxide 24 (21-32) mmol/L Anion Gap 10.4 (5.0-14.0) mmol/L BUN 8 (7-18) mg/dL Creatinine 0.7 (0.6-1.0) mg/dL Est Cr Clr Drug Dosing 45.05 mL/min Estimated GFR (MDRD) > 60 (>60) Glucose 97 (74-106) mg/dL Calcium 7.7 L (8.5-10.1) mg/dL Creatine Kinase 121 (26-192) U/L REINA Results - Last 24 hrs: Microbiology 12/04/18 18:35 Urine Culture - Preliminary Urine, Clean Catch Med Orders - Current: Current Medications Acetaminophen (Tylenol) 650 mg PO Q4H PRN PRN Reason: Pain/Fever Last Admin: 12/05/18 02:50 Dose: 650 mg Aspirin (Halfprin) 81 mg PO DAILY [facility] Last Admin: 12/06/18 08:37 Dose: 81 mg Hydrochlorothiazide (Hydrochlorothiazide) 25 mg PO DAILY [facility] Last Admin: 12/06/18 08:37 Dose: 25 mg Sodium Chloride (Normal Saline) 1,000 mls @ 125 mls/hr IV ASDIRECTED [facility] Last Admin: 12/06/18 03:43 Dose: 125 mls/hr Ceftriaxone Sodium 1 gm/ (Sodium Chloride) 50 mls @ 100 mls/hr IV Q24H [facility] Last Admin: 12/05/18 17:30 Dose: 100 mls/hr Lisinopril (Prinivil) 20 mg PO DAILY [facility] Last Admin: 12/06/18 08:37 Dose: 20 mg Magnesium Hydroxide (Milk Of Magnesia) 30 ml PO Q12H PRN PRN Reason: Constipation Melatonin (Melatonin) 9 mg PO BEDTIME [facility] Last Admin: 12/05/18 21:32 Dose: 9 mg Ondansetron HCl (Zofran Odt) 4 mg PO Q6H PRN PRN Reason: Nausea able to take PO Ondansetron HCl (Zofran) 4 mg IV Q6H PRN PRN Reason: Nausea/Vomiting Polymyxin/Trimethoprim Sulfate (Polytrim Ophth Soln) 0 ml EYERT QID [facility] Last Admin: 12/06/18 09:12 Dose: Not Given Senna/Docusate Sodium (Senna Plus) 1 tab PO BID PRN PRN Reason: Constipation Tramadol HCl (Ultram) 50 mg PO Q6H PRN PRN Reason: Pain (moderate 4-6) Last Admin: 12/05/18 02:49 Dose: 50 mg Discontinued Medications Ceftriaxone Sodium (Rocephin) Confirm Administered Dose 1 gm .ROUTE .STK-MED ONE Stop: 12/04/18 19:38 Last Admin: 12/04/18 19:55 Dose: Not Given Sodium Chloride (Normal Saline) 1,000 mls @ 999 mls/hr IV ASDIRECTED [facility] Last Admin: 12/04/18 12:49 Dose: 999 mls/hr Sodium Chloride (Normal Saline) 1,000 mls @ 250 mls/hr IV ASDIRECTED [facility] Last Admin: 12/04/18 14:34 Dose: 250 mls/hr - Exam General: Reports: Alert Lungs: Reports: Clear to Auscultation, Normal Respiratory Effort Cardiovascular: Reports: Regular Rhythm, Murmurs GI/Abdominal Exam: Soft, Non-Tender
--- NOTE | 2018-12-07 14:25 | CRLUS ---
Final Report: INDICATION: Follow-up CT. Right adnexal cystic mass. TECHNIQUE: Ultrasound pelvis transabdominal and transvaginal. Real-time sonographic images with spectral and color Doppler imaging of the ovaries were obtained. COMPARISON: 12/04/[address] FINDINGS: Uterus: 5.3 x 3.6 x 3.0 cm. Uterine calcifications, possibly small uterine fibroids. Endometrium: Endometrial thickness measures 4 mm. Mild endometrial fluid. Right ovary measures 3.3 x 3.3 x 2.5 cm and left ovary was not visualized. Circumscribed anechoic right renal cyst measuring 3.1 x 2.6 x 2.5 cm. No solid nodular components or vascularity. Normal arterial and venous blood flow is demonstrated the right ovary. Cul-de-sac: Mild free fluid. IMPRESSION: 1. Right ovarian cyst measuring up to 3.1 cm. No solid nodular component or vascularity identified. Recommend follow-up in 1 year with pelvic ultrasound. 2. Mild free pelvic fluid, and mild endometrial fluid. 3. Possible small calcified uterine fibroids. Dictated by Onofre Peña MD @ Dec 06 2018 9:51AM Signed by: Onofre Peña MD @12/06/2018 10:00:00 AM (Electronic Signature) MTDD
== END 2018-12-06 14:56 | disposition home or self-care (01) | DRG 565 ==
LOC: JP.ED 12:27 → JP.MS 15:21
PROVIDERS: ADMIT Internal Medicine; ATTEND Internal Medicine
DX: R74.8 Abnormal levels of other serum enzymes (principal); S70.02XA Contusion of left hip, initial encounter; S20.212A Contusion of left front wall of thorax, initial encounter; T79.6XXA Traumatic ischemia of muscle, initial encounter; N30.00 Acute cystitis without hematuria; W01.0XXA Fall on same level from slipping, tripping and stumbling without subsequent striking against object, initial encounter; E86.0 Dehydration; I25.10 Atherosclerotic heart disease of native coronary artery without angina pectoris; I35.9 Nonrheumatic aortic valve disorder, unspecified; I10 Essential (primary) hypertension; Z95.0 Presence of cardiac pacemaker; E78.5 Hyperlipidemia, unspecified; K21.9 Gastro-esophageal reflux disease without esophagitis; Z66 Do not resuscitate; H10.9 Unspecified conjunctivitis; N83.201 Unspecified ovarian cyst, right side; R13.10 Dysphagia, unspecified; Z79.82 Long term (current) use of aspirin; Z79.899 Other long term (current) drug therapy
CPT/HCPCS: 36415; 71045; 73502; 80053; 82550; 84484; 85025; J7030 ×2; 70450; 72131; 76830; 76856; 80048; 81001; 85027; 87086; 87088; 87186; 92610-GN; 96360; 96361; 97162-GP; 97530-GP; 99283; 99285-25; A9270-GY; J0696; J7050

== ENCOUNTER 2019-01-10 18:10 | Observation (INO) | payer MEDICARE ==
[2019-01-10] MEDS ORDERED: Ondansetron 4 MG Tab.DIS PO ONE (18:56)
[2019-01-10] MEDS ORDERED: Acetaminophen/HYDROcodone 325-5 MG Tab PO ONE ×2 (18:56→20:06)
--- NOTE | 2019-01-10 19:03 | EDM.PDOC ---
ED HPI GENERAL MEDICAL PROBLEM - General Chief Complaint: Upper Extremity Injury/Pain Stated Complaint: DIZZY,NAUSEOUS Time Seen by Provider: 01/10/19 18:45 Source of Information: Reports: Patient, Family, Old Records, RN History Limitations: Reports: No Limitations - History of Present Illness INITIAL COMMENTS - FREE TEXT/NARRATIVE: 88 yo female here with R shoulder pain after a fall in her bathroom 2 days ago and nausea since about 2 pm today. No fever, vomiting, or dizziness. No meds taken today for her shoulder pain. No known exposures to anyone with GI sx's. Bowels normal. No abdominal pain or distention. Onset: Today (nausea), Gradual (R shoulder pain) Onset Date: 01/10/19 Duration: Hour(s):, Constant Location: Reports: Upper Extremity, Right Quality: Reports: Ache (R shoulder) Severity: Moderate Improves with: Reports: Rest (R shoulder) Worsens with: Reports: Movement (R shoulder) Context: Reports: Trauma (see HPI) Associated Symptoms: Reports: Nausea/Vomiting (no vomiting). 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: Other (see below) (none) Right Shoulder Pain Score (Numeric/FACES): 10 - Related Data Allergies Allergy/AdvReac Type Severity Reaction Status Date / Time No Known Allergies Allergy Verified 08/12/15 22:12 Home Meds: Home Meds Multivitamin [Daily Multiple Vitamin] 1 tab PO DAILY 08/12/15 [History] Lisinopril/Hydrochlorothiazide [Lisinopril-Hctz 20-25 mg Tab] 20.25 mg PO DAILY 08/13/15 [History] Aspirin [Halfprin] 1 tab PO DAILY 12/04/18 [History] Past Medical History HEENT History: Reports: Hard of Hearing Cardiovascular History: Reports: CAD, Hypertension, Pacemaker, Syncope, Other ( See Below) Other Cardiovascular History: heart valve problems, dyslipidemia Gastrointestinal History: Reports: GERD Genitourinary History: Reports: Urinary Incontinence 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: Immunologic History: Reports: Other (See Below) Other Immunologic History: RA - Past Surgical History Musculoskeletal Surgical History: Reports: Knee Replacement, Other (See Below) Other Musculoskeletal Surgeries/Procedures:: back surgery Social & Family History - Family History Family Medical History: Noncontributory - Tobacco Use Smoking Status *Q: Never Smoker - Caffeine Use Caffeine Use: Reports: None - Alcohol Use Days Per Week of Alcohol Use: 7 Number of Drinks Per Day: 4 Total Drinks Per Week: 28 - Recreational Drug Use Recreational Drug Use: No Review of Systems - Review of Systems Review Of Systems: See Below Constitutional: Reports: No Symptoms Eyes: Reports: No Symptoms Ears: Reports: No Symptoms Nose: Reports: No Symptoms Mouth/Throat: Reports: No Symptoms Respiratory: Reports: No Symptoms Cardiovascular: Reports: No Symptoms GI/Abdominal: Reports: Nausea. Denies: Abdominal Pain, Bloody Stool, Constipation, Decreased Appetite, Diarrhea, Hematemesis, Vomiting Genitourinary: Reports: No Symptoms Musculoskeletal: Reports: Shoulder Pain (right) Skin: Reports: No Symptoms Neurological: Reports: No Symptoms. Denies: Headache, Seizure, Syncope ED EXAM, GENERAL - Physical Exam Exam: See Below Exam Limited By: No Limitations General Appearance: Alert, WD/WN, No Apparent Distress Eye Exam: Bilateral Eye: Normal Inspection Ears: Normal External Exam, Normal Canal, Hearing Grossly Normal, Normal TMs Ear Exam: Bilateral Ear: Auricle Normal, Canal Normal, TM normal Nose: Normal Inspection, Normal Mucosa, No Blood Throat/Mouth: Normal Inspection, Normal Lips, Normal Oropharynx, Normal Voice, No Airway Compromise Head: Atraumatic, Normocephalic Neck: Normal Inspection, Supple Respiratory/Chest: No Respiratory Distress, Lungs Clear, Normal Breath Sounds, No Accessory Muscle Use Cardiovascular: Regular Rate, Rhythm, No Edema GI/Abdominal: Normal Bowel Sounds, Soft, Non-Tender, No Distention Extremities: Normal Inspection, No Pedal Edema, Arm Pain (deltoid area tender with palpation or movement.), Limited Range of Motion. No: Normal Range of Motion, Non-Tender, Increased Warmth, Mottled, Pallor, Redness Neurological: Alert, Oriented, CN II-XII Intact, Normal Cognition, No Motor/ Sensory Deficits Psychiatric: Normal Affect, Normal Mood Skin Exam: Warm, Dry, Intact, Normal Color, No Rash Course - Vital Signs Last Recorded V/S: Last Vital Signs Temp 36.2 C 01/10/19 18:46 Pulse 83 01/10/19 20:42 Resp 16 01/10/19 18:46 BP 128/60 01/10/19 20:42 Pulse Ox 97 01/10/19 20:42 - Orders/Labs/Meds Orders: Active Orders 24 hr Category Date Time Status NS + KCl 20mEq/L [Normal Saline with 20 mEq KCl] 1,000 Med 01/10/19 20:15 Active ml IV ASDIRECTED Medication Orders Potassium Chloride/Sodium Chloride (Normal Saline With 20 Meq Kcl) 1,000 mls @ 1,000 mls/hr IV ASDIRECTED JIMBO Last Admin: 01/10/19 20:35 Dose: 1,000 mls/hr Labs: Laboratory Tests 01/10/19 01/10/19 01/10/19 Range/Units 19:00 19:00 19:55 WBC 11.3 H (4.5-11.0) K/uL RBC 4.16 (3.30-5.50) M/uL Hgb 13.9 (12.0-15.0) g/dL Hct 41.0 (36.0-48.0) % MCV 99 H (80-98) fL MCH 33 H (27-31) pg MCHC 34 (32-36) % Plt Count 231 (150-400) K/uL Sodium 132 L (140-148) mmol/L Potassium 3.3 L (3.6-5.2) mmol/L Chloride 97 L (100-108) mmol/L Carbon Dioxide 23 (21-32) mmol/L Anion Gap 15.3 H (5.0-14.0) mmol/L BUN 9 (7-18) mg/dL Creatinine 0.6 (0.6-1.0) mg/dL Est Cr Clr Drug Dosing 50.27 mL/min Estimated GFR (MDRD) > 60 (>60) Glucose 106 (74-106) mg/dL Calcium 8.8 (8.5-10.1) mg/dL Magnesium (1.8-2.4) mg/dL Total Bilirubin 0.9 (0.2-1.0) mg/dL AST 18 (15-37) U/L ALT 15 (12-78) U/L Alkaline Phosphatase 61 (46-116) U/L Troponin I < 0.017 (0.000-0.056) ng/mL Total Protein 6.5 (6.4-8.2) g/dL Albumin 3.1 L (3.4-5.0) g/dL Globulin 3.4 (2.3-3.5) g/dL Albumin/Globulin Ratio 0.9 L (1.2-2.2) Urine Color Yellow (YELLOW) Urine Appearance Slightly cloudy A (CLEAR) Urine pH 5.5 (5.0-8.0) Ur Specific [place] 1.020 (1.008-1.030) Urine Protein Negative (NEGATIVE) mg/dL Urine Glucose (UA) Negative (NEGATIVE) mg/dL Urine Ketones 40 H (NEGATIVE) mg/dL Urine Occult Blood Moderate H (NEGATIVE) Urine Nitrite Negative (NEGATIVE) Urine Bilirubin Negative (NEGATIVE) Urine Urobilinogen 0.2 (0.2-1.0) EU/dL Ur Leukocyte Esterase Small H (NEGATIVE) Urine RBC 0-5 (0-5) Urine WBC 5-10 H (0-5) Ur Epithelial Cells Moderate Amorphous Sediment Moderate Urine Bacteria Few Urine Mucus Few 01/10/19 Range/Units 20:03 WBC (4.5-11.0) K/uL RBC (3.30-5.50) M/uL Hgb (12.0-15.0) g/dL Hct (36.0-48.0) % MCV (80-98) fL MCH (27-31) pg MCHC (32-36) % Plt Count (150-400) K/uL Sodium (140-148) mmol/L Potassium (3.6-5.2) mmol/L Chloride (100-108) mmol/L Carbon Dioxide (21-32) mmol/L Anion Gap (5.0-14.0) mmol/L BUN (7-18) mg/dL Creatinine (0.6-1.0) mg/dL Est Cr Clr Drug Dosing mL/min Estimated GFR (MDRD) (>60) Glucose (74-106) mg/dL Calcium (8.5-10.1) mg/dL Magnesium 1.4 L (1.8-2.4) mg/dL Total Bilirubin (0.2-1.0) mg/dL AST (15-37) U/L ALT (12-78) U/L Alkaline Phosphatase (46-116) U/L Troponin I (0.000-0.056) ng/mL Total Protein (6.4-8.2) g/dL Albumin (3.4-5.0) g/dL Globulin (2.3-3.5) g/dL Albumin/Globulin Ratio (1.2-2.2) Urine Color (YELLOW) Urine Appearance (CLEAR) Urine pH (5.0-8.0) Ur Specific [place] (1.008-1.030) Urine Protein (NEGATIVE) mg/dL Urine Glucose (UA) (NEGATIVE) mg/dL Urine Ketones (NEGATIVE) mg/dL Urine Occult Blood (NEGATIVE) Urine Nitrite (NEGATIVE) Urine Bilirubin (NEGATIVE) Urine Urobilinogen (0.2-1.0) EU/dL Ur Leukocyte Esterase (NEGATIVE) Urine RBC (0-5) Urine WBC (0-5) Ur Epithelial Cells Amorphous Sediment Urine Bacteria Urine Mucus Meds: Medications Generic Name Dose Route Start Last Admin Trade Name Freq PRN Reason Stop Dose Admin Potassium Chloride/Sodium Chloride 1,000 mls @ 1,000 mls/hr 01/10/19 20:15 20:35 Normal Saline With 20 Meq Kcl IV 1,000 mls/hr ASDIRECTED JIMBO Administration Discontinued Medications Generic Name Dose Route Start Last Admin Trade Name Freq PRN Reason Stop Dose Admin Hydrocodone Bitart/Acetaminophen 1 tab 01/10/19 18:56 01/10/19 19:34 [place] 325-5 Mg PO 01/10/19 18:57 1 tab ONETIME ONE Administration Hydrocodone Bitart/Acetaminophen 1 tab 01/10/19 20:06 01/10/19 20:16 [place] 325-5 Mg PO 01/10/19 20:07 1 tab ONETIME ONE Administration Magnesium Oxide 800 mg 01/10/19 21:09 01/10/19 21:13 Magnesium Oxide PO 01/10/19 21:10 800 mg ONETIME ONE Administration Ondansetron HCl 4 mg 01/10/19 18:56 01/10/19 19:34 Zofran Odt PO 01/10/19 18:57 4 mg ONETIME ONE Administration Potassium Chloride 20 meq 01/10/19 20:02 01/10/19 20:16 Potassium Chloride PO 01/10/19 20:03 20 meq ONETIME ONE Administration - Radiology Interpretation Free Text/Narrative:: R shoulder X-ray-degen. changes only Departure - Departure Time of Disposition: 22:01 Disposition: Refer to Observation Condition: Fair Clinical Impression: Nausea, Hypokalemia, Hypomagnesemia Shoulder pain, right Qualifiers: Chronicity: acute Qualified Code(s): M25.511 - Pain in right shoulder - Discharge Information *PRESCRIPTION DRUG MONITORING PROGRAM REVIEWED*: No *COPY OF PRESCRIPTION DRUG MONITORING REPORT IN PATIENT ERICKSON: No Referrals: PCP,None [Primary Care Provider] - Forms: ED Department Discharge - My Orders Last 24 Hours: My Active Orders 01/10/19 20:15 NS + KCl 20mEq/L [Normal Saline with 20 mEq KCl] 1,000 ml IV ASDIRECTED - Assessment/Plan Last 24 Hours: My Active Orders 01/10/19 20:15 NS + KCl 20mEq/L [Normal Saline with 20 mEq KCl] 1,000 ml IV ASDIRECTED
--- NOTE | 2019-01-10 20:00 | CRLCR ---
INDICATION: Fall 2 days prior TECHNIQUE: Three views right shoulder COMPARISON: 09/14/2008 FINDINGS: Bones: Alignment is normal. No fractures or bone lesions. Joint spaces: Degenerative changes AC joint. Probable calcified tendinosis involving the rotator cuff. Soft tissues: Unremarkable. IMPRESSION: No evidence of acute trauma. Dictated by Onofre Ennis MD @ 01/10/2019 7:57:54 PM Dictated by: Onofre Ennis MD @ 01/10/2019 19:58:05 (Electronically Signed)
[2019-01-10] MEDS ORDERED: Potassium Chloride 10 MEQ Cap.ER PO ONE (20:02)
[2019-01-10] MEDS ORDERED: NS + KCl 20mEq/L 1,000 ML IV SCH (20:15)
[2019-01-10] MEDS ORDERED: Magnesium Oxide 400 MG Tab PO ONE (21:09)
--- NOTE | 2019-01-10 22:57 | PCM.HP.2 ---
H&P History of Present Illness - General Date of Service: 01/10/19 Admit Problem/Dx: Admission Diagnosis/Problem Admission Diagnosis/Problem Shoulder pain Source of Information: Patient History Limitations: Reports: No Limitations - History of Present Illness Initial Comments - Free Text/Narative: INITIAL COMMENTS - Shoulder pain and weakness 88 yo female here with R shoulder pain after a fall in her bathroom 2 days ago and nausea since about 2 pm today. No fever, vomiting, or dizziness. No meds taken today for her shoulder pain. No known exposures to anyone with GI sx's. Bowels normal. No abdominal pain or distention. Onset: Today (nausea), Gradual (R shoulder pain) Her Son's and Daughter in law are here at bedside. They reports she fell on Wednesday in the bathtub, but didn't tell anyone til today when the pain was so bad caused her to be sick to stomach. She lives alone in her own home, her "Kids " are next door. They would like her strengthen for discharge to home. Mrs. Cagle feels safe in her and doesn't have any concerns at this time. The Patient and Family are not looking for Senior Living or Acute Rehab placement. Onset of Symptoms: Reports: Sudden Symptom Onset Date: 01/08/19 Duration of Symptoms: Reports: Getting Worse Location: Reports: Upper Extremity, Right Quality: Reports: Sharp Severity: Severe Improves with: Reports: Rest Worsens with: Reports: None Context: Reports: Trauma (fall in bath tub) Associated Symptoms: Reports: Loss of Appetite, Nausea/Vomiting, Weakness Right Shoulder Pain Score (Numeric/FACES): 10 - Related Data Allergies/Adverse Reactions: Allergies Allergy/AdvReac Type Severity Reaction Status Date / Time No Known Allergies Allergy Verified 08/12/15 22:12 Home Medications: Home Meds Multivitamin [Daily Multiple Vitamin] 1 tab PO DAILY 08/12/15 [History] Lisinopril/Hydrochlorothiazide [Lisinopril-Hctz 20-25 mg Tab] 20.25 mg PO DAILY 08/13/15 [History] Aspirin [Halfprin] 1 tab PO DAILY 12/04/18 [History] Past Medical History HEENT History: Reports: Hard of Hearing Cardiovascular History: Reports: CAD, Hypertension, Pacemaker, Syncope, Other ( See Below) Other Cardiovascular History: heart valve problems, dyslipidemia Gastrointestinal History: Reports: GERD Genitourinary History: Reports: Urinary Incontinence 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: Immunologic History: Reports: Other (See Below) Other Immunologic History: RA - Past Surgical History Musculoskeletal Surgical History: Reports: Knee Replacement, Other (See Below) Other Musculoskeletal Surgeries/Procedures:: back surgery Social & Family History - Family History Family Medical History: Noncontributory - Tobacco Use Smoking Status *Q: Never Smoker - Caffeine Use Caffeine Use: Reports: None - Alcohol Use Days Per Week of Alcohol Use: 7 Number of Drinks Per Day: 4 Total Drinks Per Week: 28 - Recreational Drug Use Recreational Drug Use: No H&P Review of Systems - Review of Systems: Review Of Systems: See Below General: Reports: Weakness, Fatigue, Other (nausea since 2 pm today) HEENT: Reports: Other (dentures, has hearing aides but refuses to wear them.) Pulmonary: Reports: No Symptoms Cardiovascular: Reports: Other (pacemaker and heart murmur) Gastrointestinal: Reports: Nausea Genitourinary: Reports: Other (treated bladder infection few weeks ago.) Musculoskeletal: Reports: Shoulder Pain (right shoulder pain) Skin: Reports: No Symptoms Psychiatric: Reports: No Symptoms Neurological: Reports: No Symptoms Hematologic/Lymphatic: Reports: No Symptoms Immunologic: Reports: No Symptoms Exam - Exam Exam: See Below - Vital Signs Vital Signs: Last Vital Signs Temp 36.2 C 01/10/19 18:46 Pulse 83 01/10/19 20:42 Resp 16 01/10/19 18:46 BP 128/60 01/10/19 20:42 Pulse Ox 97 01/10/19 20:42 Weight: 73.2 kg - Exam Quality Assessment: DVT Prophylaxis General: Alert, Oriented, 4 HEENT: PERRLA, Conjunctiva Clear, EACs Clear, EOMI, Hearing Intact, Mucosa Moist & [place], Nares Patent, Normal Nasal Septum, Posterior Pharynx Clear, TMs Clear, Other (denture present) Neck: Supple, Trachea Midline, 2 Lungs: Clear to Auscultation, Normal Respiratory Effort Cardiovascular: Regular Rate, Regular Rhythm, Other (murmur) GI/Abdominal Exam: Normal Bowel Sounds, Soft, Non-Tender, No Distention (Female) Exam: Deferred Rectal (Female) Exam: Deferred Back Exam: Normal Inspection, Full Range of Motion Extremities: No Pedal Edema, Arm Pain (right), Limited Range of Motion (right arm) Peripheral Pulses: 2+: Radial (L), Radial (R), Dorsalis Pedis (L), Dorsalis Pedis (R) Skin: Warm, Dry, Intact Neurological: Strength Equal Bilateral, Normal Speech, Normal Tone Neuro Extensive - Mental Status: Alert, Oriented x3, Normal Mood/Affect, Normal Cognition Neuro Extensive - Motor, Sensory, Reflexes: Normal Gait, Normal Reflexes Psychiatric: Alert, Normal Affect, Normal Mood - Patient Data Lab Results Last 24 hrs: Laboratory Results - last 24 hr 01/10/19 01/10/19 01/10/19 Range/Units 19:00 19:00 19:55 WBC 11.3 H (4.5-11.0) K/uL RBC 4.16 (3.30-5.50) M/uL Hgb 13.9 (12.0-15.0) g/dL Hct 41.0 (36.0-48.0) % MCV 99 H (80-98) fL MCH 33 H (27-31) pg MCHC 34 (32-36) % Plt Count 231 (150-400) K/uL Sodium 132 L (140-148) mmol/L Potassium 3.3 L (3.6-5.2) mmol/L Chloride 97 L (100-108) mmol/L Carbon Dioxide 23 (21-32) mmol/L Anion Gap 15.3 H (5.0-14.0) mmol/L BUN 9 (7-18) mg/dL Creatinine 0.6 (0.6-1.0) mg/dL Est Cr Clr Drug Dosing 50.27 mL/min Estimated GFR (MDRD) > 60 (>60) Glucose 106 (74-106) mg/dL Calcium 8.8 (8.5-10.1) mg/dL Magnesium (1.8-2.4) mg/dL Total Bilirubin 0.9 (0.2-1.0) mg/dL AST 18 (15-37) U/L ALT 15 (12-78) U/L Alkaline Phosphatase 61 (46-116) U/L Troponin I < 0.017 (0.000-0.056) ng/mL Total Protein 6.5 (6.4-8.2) g/dL Albumin 3.1 L (3.4-5.0) g/dL Globulin 3.4 (2.3-3.5) g/dL Albumin/Globulin Ratio 0.9 L (1.2-2.2) Urine Color Yellow (YELLOW) Urine Appearance Slightly cloudy A (CLEAR) Urine pH 5.5 (5.0-8.0) Ur Specific [place] 1.020 (1.008-1.030) Urine Protein Negative (NEGATIVE) mg/dL Urine Glucose (UA) Negative (NEGATIVE) mg/dL Urine Ketones 40 H (NEGATIVE) mg/dL Urine Occult Blood Moderate H (NEGATIVE) Urine Nitrite Negative (NEGATIVE) Urine Bilirubin Negative (NEGATIVE) Urine Urobilinogen 0.2 (0.2-1.0) EU/dL Ur Leukocyte Esterase Small H (NEGATIVE) Urine RBC 0-5 (0-5) Urine WBC 5-10 H (0-5) Ur Epithelial Cells Moderate Amorphous Sediment Moderate Urine Bacteria Few Urine Mucus Few 01/10/19 Range/Units 20:03 WBC (4.5-11.0) K/uL RBC (3.30-5.50) M/uL Hgb (12.0-15.0) g/dL Hct (36.0-48.0) % MCV (80-98) fL MCH (27-31) pg MCHC (32-36) % Plt Count (150-400) K/uL Sodium (140-148) mmol/L Potassium (3.6-5.2) mmol/L Chloride (100-108) mmol/L Carbon Dioxide (21-32) mmol/L Anion Gap (5.0-14.0) mmol/L BUN (7-18) mg/dL Creatinine (0.6-1.0) mg/dL Est Cr Clr Drug Dosing mL/min Estimated GFR (MDRD) (>60) Glucose (74-106) mg/dL Calcium (8.5-10.1) mg/dL Magnesium 1.4 L (1.8-2.4) mg/dL Total Bilirubin (0.2-1.0) mg/dL AST (15-37) U/L ALT (12-78) U/L Alkaline Phosphatase (46-116) U/L Troponin I (0.000-0.056) ng/mL Total Protein (6.4-8.2) g/dL Albumin (3.4-5.0) g/dL Globulin (2.3-3.5) g/dL Albumin/Globulin Ratio (1.2-2.2) Urine Color (YELLOW) Urine Appearance (CLEAR) Urine pH (5.0-8.0) Ur Specific [place] (1.008-1.030) Urine Protein (NEGATIVE) mg/dL Urine Glucose (UA) (NEGATIVE) mg/dL Urine Ketones (NEGATIVE) mg/dL Urine Occult Blood (NEGATIVE) Urine Nitrite (NEGATIVE) Urine Bilirubin (NEGATIVE) Urine Urobilinogen (0.2-1.0) EU/dL Ur Leukocyte Esterase (NEGATIVE) Urine RBC (0-5) Urine WBC (0-5) Ur Epithelial Cells Amorphous Sediment Urine Bacteria Urine Mucus Result Diagrams: 01/10/19 19:00 01/10/19 19:00 - Problem List (1) Shoulder pain, right SNOMED Code(s): 10797056, 57100446 ICD Code: M25.511 - PAIN IN RIGHT SHOULDER Status: Acute Priority: High Current Visit: Yes Qualifiers: Chronicity: acute Qualified Code(s): M25.511 - Pain in right shoulder (2) Urinary tract infection in elderly patient SNOMED Code(s): 41479763 ICD Code: N39.0 - URINARY TRACT INFECTION, SITE NOT SPECIFIED Status: Acute Priority: Low Current Visit: Yes (3) History of cardiac pacemaker in situ SNOMED Code(s): 810814836 ICD Code: Z95.0 - PRESENCE OF CARDIAC PACEMAKER Status: Acute Priority: Low Current Visit: Yes Problem List Initiated/Reviewed/Updated: Yes Orders Last 24hrs: Active Orders 24 hr Category Date Time Status Patient Status Manage Transfer [TRANSFER] Routine ADT 01/10/19 21:46 Active Aspirin [Halfprin] Med 01/11/19 09:00 Active 81 mg PO DAILY Lisinopril [Prinivil] Med 01/11/19 09:00 Active 20 mg PO DAILY Multivitamins w-Iron/Ca/FA/Min [Thera M Plus] Med 01/11/19 09:00 Active 1 tab PO DAILY NS + KCl 20mEq/L [Normal Saline with 20 mEq KCl] 1,000 Med 01/10/19 20:15 Active ml IV ASDIRECTED hydroCHLOROthiazide Med 01/11/19 09:00 Active 25 mg PO DAILY Resuscitation Status Routine Resus Stat 01/10/19 21:47 Ordered Medication Orders Aspirin (Halfprin) 81 mg PO DAILY [facility] Hydrochlorothiazide (Hydrochlorothiazide) 25 mg PO DAILY [facility] Potassium Chloride/Sodium Chloride (Normal Saline With 20 Meq Kcl) 1,000 mls @ 1,000 mls/hr IV ASDIRECTED [facility] Last Admin: 01/10/19 20:35 Dose: 1,000 mls/hr Lisinopril (Prinivil) 20 mg PO DAILY [facility] Multivitamins/Minerals (Thera M Plus) 1 tab PO DAILY [facility] Assessment/Plan Comment:: ASSESSMENT / PLAN - right shoulder pain and weakness 88 yo female here with R shoulder pain after a fall in her bathroom 2 days ago and nausea since about 2 pm today. No fever, vomiting, or dizziness. No meds taken today for her shoulder pain. No known exposures to anyone with GI sx's. Bowels normal. No abdominal pain or distention. Onset: Today (nausea), Gradual (R shoulder pain) Her Son's and Daughter in law are here at bedside. They reports she fell on Wednesday in the bathtub, but didn't tell anyone til today when the pain was so laya caused her to be sick to stomach. She lives alone in her own home, her "Kids " are next door. They would like her strengthen for discharge to home. Mrs. Cagle feels safe in her and doesn't have any concerns at this time. The Patient and Family are not looking for Senior Living or Acute Rehab placement. Labs: potassium low - give one liter of Normal Saline with 20 meq. Potassium. urine +leukocytes, +wbc, x-rays negative for acute fracture. Will plan to admit OBS to treat symptoms and reassess in am. right Shoulder pain with nausea and weakness -IV hydration with Normal Saline at 100ml/hr -Zofran 4 mg odt every 6 hours prn nausea -Motrin po as directed -Mccoll 5-325mg one every 4 to 6 hours prn pain -right arm in sling for comfort -referral to OT and PT for discharge planning -am labs; cbc, bmp Urinary Tract Infection - recent treatment for UTI, urine today is cloudy, + wbc , + Leukocytes, +ketones -IV Rocephin 1 gram every 24 hours -IV fluids for rehydration Pacemaker -telemetry Maintenance issues -Orders home meds: ordered -Nutrition: soft diet -Mc[place]on catheter not indicated at this time -DVT:Lovenox 30mg subcut daily -GI Prophalaxis; Protonix 40mg daily -sleep - Melatonin 6 mg po at hs prn sleeplessness CODE STATUS: DNR/DNI Admission status: Admit to Observation -I expect this patient to stay less than 24 hours, not to exceed 96 hours for evaluation and management of this problem. Disposition: home with family Primary care provider: Hospitalist: Dr. Goodrich - Mortality Measure Prognosis:: Good
[2019-01-10] MEDS ORDERED: Albuterol 0.083% 2.5 MG/3 ML Neb Soln NEB PRN (23:32)
[2019-01-10] MEDS ORDERED: Acetaminophen 325 MG Tab PO PRN (23:32)
[2019-01-10] MEDS ORDERED: cefTRIAXone 1 GM in Sodium Chloride 0.9% 50 ML IV SCH (23:32)
[2019-01-10] MEDS ORDERED: Ondansetron 4 MG/2 ML SDV IV PRN (23:32)
[2019-01-10] MEDS ORDERED: Morphine 2 MG/ML Syringe IVPUSH PRN (23:32)
[2019-01-10] MEDS ORDERED: Ibuprofen 400 MG Tab PO PRN (23:32)
[2019-01-10] MEDS ORDERED: Docusate Sodium 100 MG Cap PO PRN (23:32)
[2019-01-10] MEDS ORDERED: Melatonin 3 MG Tab PO PRN (23:32)
[2019-01-10] MEDS ORDERED: Ondansetron 4 MG Tab.DIS PO PRN (23:32)
[2019-01-10] MEDS: Sodium Chloride 0.9% 1,000 ML IV SCH (23:55)
[2019-01-11] MEDS: Acetaminophen/HYDROcodone 325-5 MG Tab PO PRN ×3 (00:23→09:03)
[2019-01-11] MEDS ORDERED: Hydrochlorothiazide 25 MG Tab PO SCH (09:00)
[2019-01-11] MEDS ORDERED: Enoxaparin 40 MG/0.4 ML Syringe SUBCUT SCH (09:00)
[2019-01-11] MEDS ORDERED: Lisinopril 20 MG Tab PO SCH (09:00)
[2019-01-11] MEDS: Multivitamins with Iron/Calcium/Folic Acid/Minerals Tab PO SCH (09:04)
[2019-01-11] MEDS: Aspirin 81 MG Tab.EC PO SCH (09:05)
[2019-01-11] MEDS: Sodium Chloride 0.9% 1,000 ML IV SCH (10:05)
--- NOTE | 2019-01-11 10:49 | PCM.PN ---
- General Info Date of Service: 01/11/19 Subjective Update: No acute events overnight following admission. Pain is controlled at this time but not much use of the right arm so far. No fevers. Vital signs have been stable. Urine culture is pending. Physical therapy has not evaluated the patient as of yet. Patient reports that she feels well other than her shoulder pain. Functional Status: Reports: Pain Controlled, Tolerating Diet - Review of Systems General: Denies: Fever - Patient Data Vitals - Most Recent: Last Vital Signs Temp 35.6 C 01/11/19 06:43 Pulse 59 L 01/11/19 06:43 Resp 16 01/11/19 06:43 BP 101/52 L 01/11/19 06:43 Pulse Ox 96 01/11/19 06:43 Weight - Most Recent: 63.231 kg I&O - Last 24 Hours: Intake & Output 01/10/19 01/11/19 01/11/19 22:59 06:59 14:59 Intake Total 655 400 Output Total 600 200 Balance 55 200 Lab Results Last 24 Hours: Laboratory Results - last 24 hr 01/10/19 01/10/19 01/10/19 Range/Units 19:00 19:00 19:55 WBC 11.3 H (4.5-11.0) K/uL RBC 4.16 (3.30-5.50) M/uL Hgb 13.9 (12.0-15.0) g/dL Hct 41.0 (36.0-48.0) % MCV 99 H (80-98) fL MCH 33 H (27-31) pg MCHC 34 (32-36) % Plt Count 231 (150-400) K/uL Neut % (Auto) (36-66) % Lymph % (Auto) (24-44) % [place] % (Auto) (2-6) % Eos % (Auto) (2-4) % Baso % (Auto) (0-1) % Sodium 132 L (140-148) mmol/L Potassium 3.3 L (3.6-5.2) mmol/L Chloride 97 L (100-108) mmol/L Carbon Dioxide 23 (21-32) mmol/L Anion Gap 15.3 H (5.0-14.0) mmol/L BUN 9 (7-18) mg/dL Creatinine 0.6 (0.6-1.0) mg/dL Est Cr Clr Drug Dosing 50.27 mL/min Estimated GFR (MDRD) > 60 (>60) Glucose 106 (74-106) mg/dL Calcium 8.8 (8.5-10.1) mg/dL Magnesium (1.8-2.4) mg/dL Total Bilirubin 0.9 (0.2-1.0) mg/dL AST 18 (15-37) U/L ALT 15 (12-78) U/L Alkaline Phosphatase 61 (46-116) U/L Troponin I < 0.017 (0.000-0.056) ng/mL Total Protein 6.5 (6.4-8.2) g/dL Albumin 3.1 L (3.4-5.0) g/dL Globulin 3.4 (2.3-3.5) g/dL Albumin/Globulin Ratio 0.9 L (1.2-2.2) Urine Color Yellow (YELLOW) Urine Appearance Slightly cloudy A (CLEAR) Urine pH 5.5 (5.0-8.0) Ur Specific [place] 1.020 (1.008-1.030) Urine Protein Negative (NEGATIVE) mg/dL Urine Glucose (UA) Negative (NEGATIVE) mg/dL Urine Ketones 40 H (NEGATIVE) mg/dL Urine Occult Blood Moderate H (NEGATIVE) Urine Nitrite Negative (NEGATIVE) Urine Bilirubin Negative (NEGATIVE) Urine Urobilinogen 0.2 (0.2-1.0) EU/dL Ur Leukocyte Esterase Small H (NEGATIVE) Urine RBC 0-5 (0-5) Urine WBC 5-10 H (0-5) Ur Epithelial Cells Moderate Amorphous Sediment Moderate Urine Bacteria Few Urine Mucus Few 01/10/19 01/11/19 01/11/19 Range/Units 20:03 05:48 05:48 WBC 6.4 (4.5-11.0) K/uL RBC 3.65 (3.30-5.50) M/uL Hgb 12.3 (12.0-15.0) g/dL Hct 36.8 (36.0-48.0) % MCV 101 H (80-98) fL MCH 34 H (27-31) pg MCHC 33 (32-36) % Plt Count 184 (150-400) K/uL Neut % (Auto) 54 (36-66) % Lymph % (Auto) 27 (24-44) % [place] % (Auto) 17 H (2-6) % Eos % (Auto) 2 (2-4) % Baso % (Auto) 0 (0-1) % Sodium 133 L (140-148) mmol/L Potassium 4.0 (3.6-5.2) mmol/L Chloride 100 (100-108) mmol/L Carbon Dioxide 25 (21-32) mmol/L Anion Gap 12.0 (5.0-14.0) mmol/L BUN 7 (7-18) mg/dL Creatinine 0.6 (0.6-1.0) mg/dL Est Cr Clr Drug Dosing 52.58 mL/min Estimated GFR (MDRD) > 60 (>60) Glucose 95 (74-106) mg/dL Calcium 8.0 L (8.5-10.1) mg/dL Magnesium 1.4 L (1.8-2.4) mg/dL Total Bilirubin (0.2-1.0) mg/dL AST (15-37) U/L ALT (12-78) U/L Alkaline Phosphatase (46-116) U/L Troponin I (0.000-0.056) ng/mL Total Protein (6.4-8.2) g/dL Albumin (3.4-5.0) g/dL Globulin (2.3-3.5) g/dL Albumin/Globulin Ratio (1.2-2.2) Urine Color (YELLOW) Urine Appearance (CLEAR) Urine pH (5.0-8.0) Ur Specific [place] (1.008-1.030) Urine Protein (NEGATIVE) mg/dL Urine Glucose (UA) (NEGATIVE) mg/dL Urine Ketones (NEGATIVE) mg/dL Urine Occult Blood (NEGATIVE) Urine Nitrite (NEGATIVE) Urine Bilirubin (NEGATIVE) Urine Urobilinogen (0.2-1.0) EU/dL Ur Leukocyte Esterase (NEGATIVE) Urine RBC (0-5) Urine WBC (0-5) Ur Epithelial Cells Amorphous Sediment Urine Bacteria Urine Mucus Med Orders - Current: Current Medications Acetaminophen (Tylenol) 650 mg PO Q4H PRN PRN Reason: Pain (Mild 1-3)/fever Last Admin: 01/11/19 00:24 Dose: 650 mg Hydrocodone Bitart/Acetaminophen ([place] 325-5 Mg) 1 tab PO Q4H PRN PRN Reason: Pain (moderate 4-6) Last Admin: 01/11/19 09:03 Dose: 1 tab Albuterol (Proventil Neb Soln) 2.5 mg NEB Q4H PRN PRN Reason: Shortness Of Breath/wheezing Aspirin (Halfprin) 81 mg PO DAILY [facility] Last Admin: 01/11/19 09:05 Dose: 81 mg Docusate Sodium (Colace) 100 mg PO BID PRN PRN Reason: Constipation Enoxaparin Sodium (Lovenox) 40 mg SUBCUT DAILY [facility] Last Admin: 01/11/19 09:04 Dose: 40 mg Hydrochlorothiazide (Hydrochlorothiazide) 25 mg PO DAILY [facility] Ceftriaxone Sodium 1 gm/ (Sodium Chloride) 50 mls @ 100 mls/hr IV Q24H [facility] Ibuprofen (Motrin) 400 mg PO Q6H PRN PRN Reason: Pain (mild 1-3) Last Admin: 01/11/19 04:34 Dose: 400 mg Lisinopril (Prinivil) 20 mg PO DAILY [facility] Melatonin (Melatonin) 6 mg PO BEDTIME PRN PRN Reason: Insomnia Last Admin: 01/11/19 00:24 Dose: 6 mg Morphine Sulfate (Morphine) 2 mg IVPUSH Q2H PRN PRN Reason: Pain (severe 7-10) Multivitamins/Minerals (Thera M Plus) 1 tab PO DAILY [facility] Last Admin: 01/11/19 09:04 Dose: 1 tab Ondansetron HCl (Zofran Odt) 4 mg PO Q6H PRN PRN Reason: Nausea able to take PO Ondansetron HCl (Zofran) 4 mg IV Q4H PRN PRN Reason: Nausea/Vomiting Discontinued Medications Hydrocodone Bitart/Acetaminophen ([place] 325-5 Mg) 1 tab PO ONETIME ONE Stop: 01/10/19 18:57 Last Admin: 01/10/19 19:34 Dose: 1 tab Hydrocodone Bitart/Acetaminophen ([place] 325-5 Mg) 1 tab PO ONETIME ONE Stop: 01/10/19 20:07 Last Admin: 01/10/19 20:16 Dose: 1 tab Potassium Chloride/Sodium Chloride (Normal Saline With 20 Meq Kcl) 1,000 mls @ 1,000 mls/hr IV ASDIRECTED [facility] Last Admin: 01/10/19 20:35 Dose: 1,000 mls/hr Ceftriaxone Sodium 1 gm/ (Sodium Chloride) 50 mls @ 100 mls/hr IV Q24H [facility] Last Admin: 01/11/19 00:26 Dose: 100 mls/hr Sodium Chloride (Normal Saline) 1,000 mls @ 100 mls/hr IV ASDIRECTED [facility] Last Admin: 01/11/19 10:05 Dose: 100 mls/hr Magnesium Oxide (Magnesium Oxide) 800 mg PO ONETIME ONE Stop: 01/10/19 21:10 Last Admin: 01/10/19 21:13 Dose: 800 mg Ondansetron HCl (Zofran Odt) 4 mg PO ONETIME ONE Stop: 01/10/19 18:57 Last Admin: 01/10/19 19:34 Dose: 4 mg Potassium Chloride (Potassium Chloride) 20 meq PO ONETIME ONE Stop: 01/10/19 20:03 Last Admin: 01/10/19 20:16 Dose: 20 meq - Exam Quality Assessment: No: Supplemental Oxygen General: Alert, Oriented, Cooperative, No Acute Distress Lungs: Normal Respiratory Effort GI/Abdominal Exam: Soft, No Distention Extremities: No Pedal Edema, Other (right shoulder in a sling ) Psy/Mental Status: Alert, Normal Affect - Problem List Review Problem List Initiated/Reviewed/Updated: Yes - My Orders Last 24 Hours: My Active Orders 01/11/19 10:47 Discontinue Telemetry Monitoring [Cardiac Monitoring Discontinue] [RC] Click to Edit - Plan Plan:: ASSESSMENT / PLAN - Right Shoulder pain - suspect rotator cuff strain. No evidence for fracture. -Pain control -right arm in sling for comfort -referral to OT and PT for discharge planning Possible Urinary Tract Infection - urine mildly suspicious for infection. No symptoms at this time. -Continue ceftriaxone -Follow-up culture Maintenance issues -Nutrition: soft diet -Mckeon catheter not indicated at this time -DVT: Granda apparent today, patient will be ambulatory with physical therapy -GI ; Protonix 40mg daily Admission status: Admit to Observation -I expect this patient to stay less than 24 hours, not to exceed 96 hours for evaluation and management of this problem. Disposition: home with home care and family Geraldo Goodrich MD
[2019-01-11] MEDS ORDERED: LISINOPRIL PO SCH (11:00)
[2019-01-11] MEDS ORDERED: HCTZ PO SCH (11:00)
[2019-01-11] MEDS ORDERED: cefTRIAXone 1 GM in Sodium Chloride 0.9% 50 ML IV SCH (22:00)
[2019-01-12] MEDS: Acetaminophen/HYDROcodone 325-5 MG Tab PO PRN (02:17)
[2019-01-12] MEDS: Multivitamins with Iron/Calcium/Folic Acid/Minerals Tab PO SCH (08:59)
[2019-01-12] MEDS: Aspirin 81 MG Tab.EC PO SCH (08:59)
[2019-01-12] MEDS ORDERED: oxyCODONE 5 MG Tab PO PRN (10:33)
[2019-01-12] MEDS ORDERED: Ibuprofen 600 MG Tab PO PRN (10:36)
[2019-01-12 11:08] VITALS: BP 104/58; PULSE 79
--- NOTE | 2019-01-12 12:26 | PCM.DCSUM1 ---
Discharge Summary - Hospital Course Brief History: Otherwise healthy 88-year-old female who presented with right shoulder pain and nausea 2 days after falling in the tub. She was admitted for management of shoulder pain and weakness and possible urinary tract infection. Diagnosis: Stroke: No - Discharge Data Discharge Date: 01/12/19 Discharge Disposition: Home, W Home Health Agency 06 Condition: Fair - Referral to Home Health Date of Face to Face Encounter: 01/12/19 Reason for Homebound Status: shoulder pain, advanced age Primary Care Physician: PCP None Skilled Need: Nursing, PT, OT, WIC SITE COORDINATOR - Discharge Diagnosis/Problem(s) (1) Shoulder pain, right SNOMED Code(s): 40382296, [id number] ICD Code: M25.511 - PAIN IN RIGHT SHOULDER Status: Acute Priority: High Current Visit: Yes Qualifiers: Chronicity: acute Qualified Code(s): M25.511 - Pain in right shoulder (2) Nausea SNOMED Code(s): 550349155 ICD Code: R11.0 - NAUSEA Status: Acute Current Visit: Yes - Patient Summary/Data Consults: Consultations 01/10/19 23:32 OT Evaluation and Treatment [CONS] Routine Please Evaluate and Treat. OT Reason for Consult: Discharge Planning Special Instructions: right shoulder injury from fall on Wednesday. 01-08-19 This query below is only for informational purposes and is not editable. PT Evaluation and Treatment [CONS] Routine Please Evaluate and Treat. PT Reason for Consult: Strengthening This query below is only for informational purposes and is not editable. Hospital Course: Marjorie presented to the emergency room with nausea and shoulder pain 2 days after falling in the tub and hitting her shoulder. X-ray imaging in the emergency room was unremarkable. Laboratory studies were fairly unremarkable. Urinalysis was very mildly suggestive of infection. Patient was thought to be too weak to return home and would require pain control so she was admitted for observation. She was empirically started on antibiotics while urine culture was pending. Overnight following admission there were no acute issues. Shoulder pain remained stable but required only oral medications to control the pain. She was evaluated by physical therapy. On my evaluation her rotator cuff seems to be intact and does not provide much in the way of pain on provocative testing. I suspect her pain is related more to a biceps tendinitis or possibly up contusion type injury to the shoulder. She did continue to work with physical therapy throughout the hospital stay. On the day of discharge her urine culture returned with mixed jabari so antibiotics were discontinued. Patient feels like she's moving well enough to be safe at home at this time. She does have help from her family who is close by but she does still live on her own. We strongly encouraged her to utilize home care services to improve her strength as well as her endurance. We did discuss possibility of subacute rehabilitation but the patient was not interested in a fdc facility for rehabilitation. She will be discharged home today. She will utilize scheduled acetaminophen and as needed ibuprofen as well as oxycodone for her pain control. She would benefit from early follow-up. Referral to home health care has been placed but I 'm not sure if the patient well except their services or not. - Patient Instructions Diet: Regular Diet as Tolerated Activity: As Tolerated Activity, Other: Keep your arm active with gentle movements Driving: Do Not Drive (when taking pain pills ) Showering/Bathing: May Shower Notify Provider of: Fever, Increased Pain Other/Special Instructions: 1. I have placed a referral to home health care to provide therapy to improve your strength and range of motion of the right shoulder. 2. I would recommend you schedule acetaminophen 1000 mg three times daily to help with your shoulder pain. You can use ibuprofen 600 mg every six hours as needed for mild pain and oxycodone 5 mg every four hours as needed for moderate pain. 3. Follow up next week Liam Burnett to see how your shoulder is doing - Discharge Plan *PRESCRIPTION DRUG MONITORING PROGRAM REVIEWED*: No *COPY OF PRESCRIPTION DRUG MONITORING REPORT IN PATIENT ERICKSON: No Prescriptions/Med Rec: oxyCODONE 5 mg PO Q4H PRN #20 tablet PRN Reason: Pain (Moderate 4-6) Home Medications: Home Meds Multivitamin [Daily Multiple Vitamin] 1 tab PO DAILY 08/12/15 [History] Lisinopril/Hydrochlorothiazide [Lisinopril-Hctz 20-25 mg Tab] 20.25 mg PO DAILY 08/13/15 [History] Aspirin [Halfprin] 1 tab PO DAILY 12/04/18 [History] oxyCODONE 5 mg PO Q4H PRN #20 tablet 01/12/19 [Rx] Other Amb Orders: DME for Discharge [COMM] Location: None Selected Oxygen Therapy Mode: Room Air Patient Handouts: Shoulder Pain Referrals: Liam Burnett NP [Nurse Practitioner] - 01/16/19 1:00 pm (Please arrive 15 minutes early to register for appointment.) - Discharge Summary/Plan Comment DC Time >30 min.: No - Patient Data Vitals - Most Recent: Last Vital Signs Temp 36.6 C 01/12/19 11:00 Pulse 79 01/12/19 11:00 Resp 18 01/12/19 11:00 BP 104/58 L 01/12/19 11:00 Pulse Ox 95 01/12/19 11:00 Weight - Most Recent: 63.231 kg I&O - Last 24 hours: Intake & Output 01/11/19 01/12/19 01/12/19 22:59 06:59 14:59 Intake Total 530 300 Output Total 400 600 Balance 530 -100 -600 REINA Results - Last 24 hrs: Microbiology 01/10/19 00:01 Urine Culture - Preliminary Urine, Clean Catch MIXED JABARI DAY 1 Med Orders - Current: Current Medications Acetaminophen (Tylenol Extra Strength) 1,000 mg PO TID [facility] Albuterol (Proventil Neb Soln) 2.5 mg NEB Q4H PRN PRN Reason: Shortness Of Breath/wheezing Aspirin (Halfprin) 81 mg PO DAILY [facility] Last Admin: 01/12/19 08:59 Dose: 81 mg Docusate Sodium (Colace) 100 mg PO BID PRN PRN Reason: Constipation Ibuprofen (Motrin) 600 mg PO Q6H PRN PRN Reason: MILD PAIN (1-3) Melatonin (Melatonin) 6 mg PO BEDTIME PRN PRN Reason: Insomnia Last Admin: 01/11/19 00:24 Dose: 6 mg Morphine Sulfate (Morphine) 2 mg IVPUSH Q2H PRN PRN Reason: Pain (severe 7-10) Last Admin: 01/11/19 11:31 Dose: 2 mg Multivitamins/Minerals (Thera M Plus) 1 tab PO DAILY [facility] Last Admin: 01/12/19 08:59 Dose: 1 tab Ondansetron HCl (Zofran Odt) 4 mg PO Q6H PRN PRN Reason: Nausea able to take PO Ondansetron HCl (Zofran) 4 mg IV Q4H PRN PRN Reason: Nausea/Vomiting Oxycodone HCl (Oxycodone) 5 mg PO Q4H PRN PRN Reason: Pain (moderate 4-6) Lisinopril/Hctz 20- (25 *Pom*) 1 each PO DAILY [facility] Last Admin: 01/11/19 11:23 Dose: 1 each Discontinued Medications Acetaminophen (Tylenol) 650 mg PO Q4H PRN PRN Reason: Pain (Mild 1-3)/fever Last Admin: 01/11/19 00:24 Dose: 650 mg Hydrocodone Bitart/Acetaminophen ([place] 325-5 Mg) 1 tab PO ONETIME ONE Stop: 01/10/19 18:57 Last Admin: 01/10/19 19:34 Dose: 1 tab Hydrocodone Bitart/Acetaminophen ([place] 325-5 Mg) 1 tab PO ONETIME ONE Stop: 01/10/19 20:07 Last Admin: 01/10/19 20:16 Dose: 1 tab Hydrocodone Bitart/Acetaminophen ([place] 325-5 Mg) 1 tab PO Q4H PRN PRN Reason: Pain (moderate 4-6) Last Admin: 01/12/19 02:17 Dose: 1 tab Enoxaparin Sodium (Lovenox) 40 mg SUBCUT DAILY [facility] Last Admin: 01/11/19 09:04 Dose: 40 mg Hydrochlorothiazide (Hydrochlorothiazide) 25 mg PO DAILY [facility] Potassium Chloride/Sodium Chloride (Normal Saline With 20 Meq Kcl) 1,000 mls @ 1,000 mls/hr IV ASDIRECTED [facility] Last Admin: 01/10/19 20:35 Dose: 1,000 mls/hr Ceftriaxone Sodium 1 gm/ (Sodium Chloride) 50 mls @ 100 mls/hr IV Q24H [facility] Last Admin: 01/11/19 00:26 Dose: 100 mls/hr Sodium Chloride (Normal Saline) 1,000 mls @ 100 mls/hr IV ASDIRECTED [facility] Last Admin: 01/11/19 10:05 Dose: 100 mls/hr Ceftriaxone Sodium 1 gm/ (Sodium Chloride) 50 mls @ 100 mls/hr IV Q24H [facility] Last Admin: 01/11/19 21:58 Dose: 100 mls/hr Ibuprofen (Motrin) 400 mg PO Q6H PRN PRN Reason: Pain (mild 1-3) Last Admin: 01/11/19 04:34 Dose: 400 mg Magnesium Oxide (Magnesium Oxide) 800 mg PO ONETIME ONE Stop: 01/10/19 21:10 Last Admin: 01/10/19 21:13 Dose: 800 mg Ondansetron HCl (Zofran Odt) 4 mg PO ONETIME ONE Stop: 01/10/19 18:57 Last Admin: 01/10/19 19:34 Dose: 4 mg Potassium Chloride (Potassium Chloride) 20 meq PO ONETIME ONE Stop: 01/10/19 20:03 Last Admin: 01/10/19 20:16 Dose: 20 meq - Exam Quality Assessment: Denies: Supplemental Oxygen General: Reports: Alert, Oriented, Cooperative, No Acute Distress HEENT: Reports: Pupils Equal Lungs: Reports: Normal Respiratory Effort GI/Abdominal Exam: Soft, No Distention Extremities: No Pedal Edema, Other (ttp over biceps insertion on the right. No pain with resisted int or ext rotation of the right arm. ). No: Joint Swelling , Increased Warmth Psy/Mental Status: Reports: Alert, Normal Affect
[2019-01-12] MEDS ORDERED: Acetaminophen 500 MG Tab PO SCH (14:00)
== END 2019-01-12 14:45 | disposition home health service (06) ==
LOC: JP.ED 18:10 → JP.MS 21:46
PROVIDERS: ADMIT Internal Medicine; ATTEND Internal Medicine
DX: M25.511 Pain in right shoulder (principal); R53.1 Weakness; R11.0 Nausea; I25.10 Atherosclerotic heart disease of native coronary artery without angina pectoris; I10 Essential (primary) hypertension; W18.2XXA Fall in (into) shower or empty bathtub, initial encounter; Z66 Do not resuscitate; Z95.0 Presence of cardiac pacemaker; Z79.82 Long term (current) use of aspirin; Z79.899 Other long term (current) drug therapy
CPT/HCPCS: 36415; 73030; 80048; 80053; 81001; 83735; 84484; 85025; 85027; 87086; 96365; 97116; 97161; 97165; 97535; 99284; A9270; J0696; J1650; J2270; J3480; J7030; J7050

== ENCOUNTER 2019-01-23 19:45 | Emergency (ER) | payer MEDICARE ==
--- NOTE | 2019-01-23 20:32 | EDM.PDOC ---
ED HPI GENERAL MEDICAL PROBLEM - General Chief Complaint: Genitourinary Problem Stated Complaint: URINTATING BLOOD Time Seen by Provider: 01/23/19 20:19 Source of Information: Reports: Patient, Family, RN Notes Reviewed History Limitations: Reports: No Limitations - History of Present Illness INITIAL COMMENTS - FREE TEXT/NARRATIVE: 88-year-old female presents emergency department today complaint of hematuria, she states it started this afternoon bright red blood with clots she denies any fever pain with urination no back pain. She states she had some trauma about 2 weeks ago she fell and hit her shoulder but does not recall hitting her abdomen or her back. At this time she is experiencing no pain does have a history of memory problems - Related Data Allergies Allergy/AdvReac Type Severity Reaction Status Date / Time No Known Allergies Allergy Verified 01/23/19 20:03 Home Meds: Home Meds Multivitamin [Daily Multiple Vitamin] 1 tab PO DAILY 08/12/15 [History] Lisinopril/Hydrochlorothiazide [Lisinopril-Hctz 20-25 mg Tab] 1 tab PO DAILY 04/17 [History] Aspirin [Halfprin] 1 tab PO DAILY 12/04/18 [History] Past Medical History HEENT History: Reports: Hard of Hearing Cardiovascular History: Reports: Afib, CAD, High Cholesterol, Hypertension, Pacemaker, Syncope, Other (See Below) Other Cardiovascular History: heart valve problems, dyslipidemia Gastrointestinal History: Reports: GERD Genitourinary History: Reports: Urinary Incontinence WOUND NURSE History: Reports: Musculoskeletal History: Reports: RA Immunologic History: Reports: Other (See Below) Other Immunologic History: RA - Past Surgical History Cardiovascular Surgical History: Reports: Pacer GI Surgical History: Reports: Cholecystectomy Neurological Surgical History: Reports: Lumbar Spine Musculoskeletal Surgical History: Reports: Knee Replacement, Other (See Below) Other Musculoskeletal Surgeries/Procedures:: back surgery Social & Family History - Family History Family Medical History: Noncontributory - Tobacco Use Smoking Status *Q: Never Smoker - Caffeine Use Caffeine Use: Reports: Coffee - Alcohol Use Days Per Week of Alcohol Use: 7 Number of Drinks Per Day: 4 Total Drinks Per Week: 28 - Recreational Drug Use Recreational Drug Use: No ED ROS GENERAL - Review of Systems Review Of Systems: See Below Constitutional: Denies: Fever, Chills HEENT: Reports: No Symptoms Respiratory: Reports: No Symptoms Cardiovascular: Reports: No Symptoms GI/Abdominal: Reports: No Symptoms : Reports: Hematuria Musculoskeletal: Reports: No Symptoms Skin: Reports: No Symptoms Neurological: Reports: No Symptoms ED EXAM, RENAL/ - Physical Exam Exam: See Below Exam Limited By: No Limitations General Appearance: Alert, WD/WN, No Apparent Distress Respiratory/Chest: No Respiratory Distress, Lungs Clear, Normal Breath Sounds, No Accessory Muscle Use, Chest Non-Tender Cardiovascular: Regular Rate, Rhythm, Systolic Murmur GI/Abdominal: Soft, Non-Tender Back Exam: No: CVA Tenderness (R), CVA Tenderness (L) Course - Vital Signs Last Recorded V/S: Last Vital Signs Temp 97.7 F 01/23/19 20:10 Pulse 77 01/23/19 22:02 Resp 19 01/23/19 20:10 BP 141/72 H 01/23/19 22:02 Pulse Ox 95 01/23/19 22:02 - Orders/Labs/Meds Orders: Active Orders 24 hr Category Date Time Status CULTURE URINE [RM] Urgent Lab 01/23/19 22:25 Received Iopamidol [Isovue-300 (61%)] Med 01/23/19 20:45 Active 100 ml IV . DIRECTED Sodium Chloride 0.9% [Normal Saline] 80 ml Med 01/23/19 20:45 Active IV ASDIRECTED Sodium Chloride 0.9% [Saline Flush] Med 01/23/19 20:38 Active 10 ml FLUSH ASDIRECTED PRN Medication Orders Sodium Chloride (Normal Saline) 80 mls @ 3 mls/sec IV ASDIRECTED JIMBO Last Admin: 01/23/19 20:52 Dose: 3 mls/sec Iopamidol (Isovue-300 (61%)) 100 ml IV . DIRECTED JIMBO Last Admin: 01/23/19 20:53 Dose: 100 ml Sodium Chloride (Saline Flush) 10 ml FLUSH ASDIRECTED PRN PRN Reason: Keep Vein Open Last Admin: 01/23/19 21:06 Dose: 10 ml Labs: Laboratory Tests 01/23/19 01/23/19 01/23/19 Range/Units 20:02 20:43 20:43 WBC 7.5 (4.5-11.0) K/uL RBC 4.26 (3.30-5.50) M/uL Hgb 14.5 D (12.0-15.0) g/dL Hct 41.3 (36.0-48.0) % MCV 97 (80-98) fL MCH 34 H (27-31) pg MCHC 35 (32-36) % Plt Count 320 (150-400) K/uL Neut % (Auto) 56 (36-66) % Lymph % (Auto) 31 (24-44) % [place] % (Auto) 10 H (2-6) % Eos % (Auto) 2 (2-4) % Baso % (Auto) 0 (0-1) % PT (9.5-12.0) sec INR (0.80-1.20) Sodium 132 L (140-148) mmol/L Potassium 3.7 (3.6-5.2) mmol/L Chloride 96 L (100-108) mmol/L Carbon Dioxide 25 (21-32) mmol/L Anion Gap 14.7 H (5.0-14.0) mmol/L BUN 8 (7-18) mg/dL Creatinine 0.7 (0.6-1.0) mg/dL Est Cr Clr Drug Dosing 41.11 mL/min Estimated GFR (MDRD) > 60 (>60) Glucose 96 (74-106) mg/dL Calcium 8.8 (8.5-10.1) mg/dL Total Bilirubin 0.4 D (0.2-1.0) mg/dL AST 19 (15-37) U/L ALT 18 (12-78) U/L Alkaline Phosphatase 63 (46-116) U/L C-Reactive Protein (0.0-0.3) mg/dL Total Protein 6.6 (6.4-8.2) g/dL Albumin 3.2 L (3.4-5.0) g/dL Globulin 3.4 (2.3-3.5) g/dL Albumin/Globulin Ratio 0.9 L (1.2-2.2) Urine Color Red A (YELLOW) Urine Appearance Cloudy A (CLEAR) Urine pH 5.5 (5.0-8.0) Ur Specific [place] 1.020 (1.008-1.030) Urine Protein 100 H (NEGATIVE) mg/dL Urine Glucose (UA) Negative (NEGATIVE) mg/dL Urine Ketones Trace H (NEGATIVE) mg/dL Urine Occult Blood Large H (NEGATIVE) Urine Nitrite Negative (NEGATIVE) Urine Bilirubin Small H (NEGATIVE) Urine Urobilinogen 0.2 (0.2-1.0) EU/dL Ur Leukocyte Esterase Large H (NEGATIVE) Urine RBC Packed H (0-5) Urine WBC 10-20 H (0-5) Ur Epithelial Cells Few Amorphous Sediment Few Urine Bacteria Few Urine Mucus Rare 01/23/19 01/23/19 Range/Units 20:43 20:43 WBC (4.5-11.0) K/uL RBC (3.30-5.50) M/uL Hgb (12.0-15.0) g/dL Hct (36.0-48.0) % MCV (80-98) fL MCH (27-31) pg MCHC (32-36) % Plt Count (150-400) K/uL Neut % (Auto) (36-66) % Lymph % (Auto) (24-44) % [place] % (Auto) (2-6) % Eos % (Auto) (2-4) % Baso % (Auto) (0-1) % PT 10.9 (9.5-12.0) sec INR 1.01 (0.80-1.20) Sodium (140-148) mmol/L Potassium (3.6-5.2) mmol/L Chloride (100-108) mmol/L Carbon Dioxide (21-32) mmol/L Anion Gap (5.0-14.0) mmol/L BUN (7-18) mg/dL Creatinine (0.6-1.0) mg/dL Est Cr Clr Drug Dosing mL/min Estimated GFR (MDRD) (>60) Glucose (74-106) mg/dL Calcium (8.5-10.1) mg/dL Total Bilirubin (0.2-1.0) mg/dL AST (15-37) U/L ALT (12-78) U/L Alkaline Phosphatase (46-116) U/L C-Reactive Protein 0.21 (0.0-0.3) mg/dL Total Protein (6.4-8.2) g/dL Albumin (3.4-5.0) g/dL Globulin (2.3-3.5) g/dL Albumin/Globulin Ratio (1.2-2.2) Urine Color (YELLOW) Urine Appearance (CLEAR) Urine pH (5.0-8.0) Ur Specific [place] (1.008-1.030) Urine Protein (NEGATIVE) mg/dL Urine Glucose (UA) (NEGATIVE) mg/dL Urine Ketones (NEGATIVE) mg/dL Urine Occult Blood (NEGATIVE) Urine Nitrite (NEGATIVE) Urine Bilirubin (NEGATIVE) Urine Urobilinogen (0.2-1.0) EU/dL Ur Leukocyte Esterase (NEGATIVE) Urine RBC (0-5) Urine WBC (0-5) Ur Epithelial Cells Amorphous Sediment Urine Bacteria Urine Mucus Meds: Medications Generic Name Dose Route Start Last Admin Trade Name Freq PRN Reason Stop Dose Admin Sodium Chloride 80 mls @ 3 mls/sec 01/23/19 20:45 01/23/19 20:52 Normal Saline IV 3 mls/sec ASDIRECTED JIMBO Administration Iopamidol 100 ml 01/23/19 20:45 01/23/19 20:53 Isovue-300 (61%) IV 100 ml . DIRECTED JIMBO Administration Sodium Chloride 10 ml 01/23/19 20:38 01/23/19 21:06 Saline Flush FLUSH 10 ml ASDIRECTED PRN Administration Keep Vein Open Departure - Departure Time of Disposition: 22:46 Disposition: Home, Self-Care 01 Condition: Fair Clinical Impression: Hematuria Qualifiers: Hematuria type: gross Qualified Code(s): R31.0 - Gross hematuria - Discharge Information Referrals: Liam Burnett [facility] [Primary Care Provider] - Forms: ED Department Discharge Additional Instructions: Try the antibiotics for the next 3 days, please follow-up with your primary care for further evaluation and consultation with urology - My Orders Last 24 Hours: My Active Orders 01/23/19 20:38 Sodium Chloride 0.9% [Saline Flush] 10 ml FLUSH ASDIRECTED PRN 01/23/19 20:45 Iopamidol [Isovue-300 (61%)] 100 ml IV . DIRECTED Sodium Chloride 0.9% [Normal Saline] 80 ml IV ASDIRECTED 01/23/19 22:25 CULTURE URINE [RM] Urgent - Assessment/Plan Last 24 Hours: My Active Orders 01/23/19 20:38 Sodium Chloride 0.9% [Saline Flush] 10 ml FLUSH ASDIRECTED PRN 01/23/19 20:45 Iopamidol [Isovue-300 (61%)] 100 ml IV . DIRECTED Sodium Chloride 0.9% [Normal Saline] 80 ml IV ASDIRECTED 01/23/19 22:25 CULTURE URINE [RM] Urgent Plan: Assessment Acuity = acute Site and laterality = hematuria Etiology = suspicious for bladder lesion Manifestations = none Location of injury = Home Lab values = sodium low at 132 consistent hyponatremia the remainder lab work including CBC CRP was unremarkable however the CT scan of the abdomen does show some concerning lesions one is a 11 cm lesion in the bladder of unknown etiology , there is a 3.5 cm mass in the endometrium of the uterus on the right side Plan I did discuss the findings with them-also provided them a copy of their CT scan results. Elected to do an empiric trial of Bactrim DS one tab by mouth twice a day 3 days, cultures pending, she is to follow-up with primary care she does need referral to urology for further evaluation which was discussed with them This note was dictated using [employer] voice recognition software please call with any questions on syntax or grammar.
[2019-01-23] MEDS ORDERED: Sodium Chloride 0.9% 10 ML Syringe FLUSH PRN (20:38)
[2019-01-23] MEDS ORDERED: Iopamidol 612 MG/ML 100 ML Bottle IV SCH (20:45)
[2019-01-23] MEDS ORDERED: Sodium Chloride 0.9% 80 ML IV SCH (20:45)
[2019-01-23 22:15] VITALS: BP 141/72; PULSE 77
--- NOTE | 2019-01-23 22:16 | CRLCT ---
INDICATION: Hematuria TECHNIQUE: CT abdomen and pelvis urogram without and with IV contrast. Contrast images were obtained in the nephrographic and delayed phases. 100 mL of Isovue-300 administered. COMPARISON: None available FINDINGS: Lower chest: 3 mm nodular opacities in the lingula and right lower lobe on image 14 of series 2 and a tiny, possibly calcified posterior left upper lobe nodule on image 3. A cardiac pacer lead. Liver: Unremarkable. Spleen: Unremarkable. Pancreas: Unremarkable. Gallbladder and bile ducts: The gallbladder is not seen, likely resected. Minor central biliary dilatation could be related to the post cholecystectomy state. Kidneys: No hydronephrosis or discrete, measurable urolithiasis. Symmetrical renal enhancement and excretion of contrast. A 2.1 x 1.4 cm right renal cyst. Mild urothelial enhancement the right UPJ and foci of the decompressed ureters. Adrenal glands: Unremarkable. GI tract: A large duodenal diverticulum. No mechanical bowel obstruction. A normal appendix. Scattered colonic diverticula without diverticulitis. Apparent mild thickening of the distal rectal and anorectal junction wall. Vascular structures: Atherosclerotic changes. An apparent thrombus versus prominent plaque with severe stenosis at the origin of the SMA on images 38-42 of series 3, with opacification of the SMA lumen more distally. Lymph nodes: Unremarkable. Miscellaneous: No significant free fluid or free air. A small fat containing paraumbilical hernia. Pelvic Organs: Bladder wall thickening. A 1.0 x 0.6 cm mural soft tissue density along the posterior left bladder wall on images 113-114 of series 3, although not as well delineated on the delayed images. Mild prominence of the low-attenuation uterine endometrium for the patient`s age. A 3.4 x 2.6 x 3.5 cm right adnexal low-density lesion. Bones: Degenerative changes in the spine. Compression deformities of the T12 and L1 vertebral bodies. Degenerative changes in the hips. IMPRESSION: No obstructive uropathy or discrete, measurable urolithiasis. A 1 cm soft tissue density along the posterior left bladder wall, concerning for a urothelial lesion, including TCC, although not well seen on the delayed images. Recommend further urological evaluation with cystoscopy. Bladder wall thickening and mild urothelial enhancement in the ureters. Correlate for a UTI. A 3.5 cm right adnexal low-density lesion. Mild prominence of the uterine endometrium for the patient`s age. Recommend further gynecological evaluation and pelvic sonography. Mild wall thickening in the distal rectum and anorectal junction could be related to incomplete distention, however correlate with physical exam. A focal thrombus, versus prominent plaque with severe stenosis, at the origin of the SMA. Other findings as above. Dictated by Kevin Workman MD @ 01/23/2019 10:14:46 PM Please note that all CT scans at this facility use dose modulation, iterative reconstruction, and/or weight-based dosing when appropriate to reduce radiation dose to as low as reasonably achievable. Dictated by: Kevin Workman MD @ 01/23/2019 22:14:51 (Electronically Signed)
== END 2019-01-23 22:57 | disposition home or self-care (01) ==
LOC: JP.ED 19:45
DX: R31.0 Gross hematuria (principal); I10 Essential (primary) hypertension; I25.10 Atherosclerotic heart disease of native coronary artery without angina pectoris; I48.91 Unspecified atrial fibrillation; M06.9 Rheumatoid arthritis, unspecified; Z90.49 Acquired absence of other specified parts of digestive tract; Z79.82 Long term (current) use of aspirin; Z79.899 Other long term (current) drug therapy
CPT/HCPCS: 36415; 74178; 80053; 81001; 85025; 85610; 86140; 87086; 99283; J7030; Q9967